=== PATIENT | female | born 1995 | race Caucasian/White ===

== ENCOUNTER 2020-11-17 15:04 | Outpatient (REF) | payer OTHER, SELFPAY ==
[2020-11-17 15:41] LABS: MANUAL DIFF FLAG NO
[2020-11-17 15:58] LABS: Basophils Absolute Auto 0.1 X10*3/uL (0.0-0.2); Basophils Percent Auto 0.6 % (0-2); Eosinophils Absolute Auto 0.3 X10*3/uL (0.0-0.4); Eosinophils Percent Auto 2.9 % (0-4); Hematocrit 39.8 % (37-47); Hemoglobin 13.3 g/dl (12.0-16.0); Imm Gran Abs Auto 0.04 X10*3/uL (0.00-0.03); Imm Gran Pct Auto 0.4 % (0.0-0.4); Lymphocytes Absolute Auto 3.6 X10*3/uL (1.2-4.9); Lymphocytes Percent Auto 36.1 % (20-40); Mean Corpuscular HGB Conc 33.4 g/dl (31.0-35.0); Mean Corpuscular Hemoglobin 29.8 pg (27.0-33.0); Mean Platelet Volume 10.7 fL (9.4-12.3); Monocytes Absolute Auto 0.5 X10*3/uL (0.1-1.2); Monocytes Percent Auto 5.2 % (2-11); Neutrophils Absolute Auto 5.5 X10*3/uL (2.0-8.3); Neutrophils Percent Auto 54.8 % (45-73); Platelet Count 245 X10*3/uL (160-400); Red Blood Count 4.47 X10*6/uL (4.20-5.50); Red Cell Distribution Width 12.2 % (11.0-16.0)
[2020-11-17 16:17] LABS: Alanine Aminotransferase 15 U/L (0-31); Albumin Level 4.4 g/dL (3.5-5.0); Alkaline Phosphatase 54 U/L (39-117); Anion Gap 11 (12-20); Aspartate Amino Transferase 13 U/L (5-31); Bilirubin Total 0.9 mg/dL (0.0-1.0); Blood Urea Nitrogen 8 mg/dL (9-16); Calcium 9.4 mg/dL (8.4-10.2); Carbon Dioxide 26 mmol/L (22-29); Chloride 103 mmol/L (96-108); Cholesterol 205 mg/dL; Estimated Glomerular Filt Rate > 60; Glucose Fasting 81 mg/dL (60-99); HDL Cholesterol 33 mg/dL; LDL Cholesterol Calculated 124 mg/dl; Potassium 4.3 mmol/L (3.3-5.1); Sodium 136 mmol/L (135-145); Total Protein 7.6 g/dL (6.5-8.0); Triglycerides 240 mg/dL
[2020-11-17 16:37] LABS: TSH reflex Free T4 0.98 uIU/mL (0.32-4.0)
== END 2020-11-17 15:05 | disposition home or self-care (01) ==
LOC: HO.LAB 15:04
PROVIDERS: PCP Family Medicine; Visit Provider Family Medicine
DX: Z00.00 Encounter for general adult medical examination without abnormal findings (principal); R11.0 Nausea; Z13.29 Encounter for screening for other suspected endocrine disorder; Z13.220 Encounter for screening for lipoid disorders
CPT/HCPCS: 36415; 80053; 80061; 84443; 85025

== ENCOUNTER 2020-11-30 11:29 | Emergency (ER) | payer OTHER, SELFPAY ==
--- NOTE | 2020-11-30 12:37 | ED_ITS ---
HPI - General Adult General Chief complaint: General Medical Stated complaint: cyst, covid symptoms Source: patient Mode of arrival: ambulatory Limitations: no limitations History of Present Illness HPI narrative: Patient presents to ED for right axillary painful cyst. Patient states history of hidradenitis suppurative a has a appointment with rate reviewer. Patient states also stating feeling fatigued and wants to be tested for COVID. Related Data Home Medications Medication Instructions Recorded Confirmed clindamycin phosphate 1 % topical ml TOPICAL BID 09/07/20 solution Previous Rx's Medication Instructions Recorded mupirocin 2 % topical ointment 1 appl TOPICAL BID 15 Days #22 g 11/01/20 ondansetron 4 mg disintegrating 4 mg PO Q8H PRN 5 Days #15 tab 11/16/20 tablet doxycycline hyclate 100 mg PO BID 7 Days #14 tab 11/30/20 ondansetron HCl [Zofran] 4 mg PO Q6H PRN #8 tab 11/30/20 Allergies Allergy/AdvReac Type Severity Reaction Status Date / Time tramadol [TRAMADOL] Allergy Severe VOMITING, Verified 11/16/20 16:41 nausea and vomiting Review of Systems Review of Systems: Yes all other systems are reviewed and are negative Constitutional: Constitutional: Reports as per HPI, Reports no additional constitutional complaints and Reports fatigue Eyes: Eyes: Reports as per HPI and Reports no additional eye complaints ENT: Reports system reviewed and no additional complaints, except as documented and Reports as per HPI Cardiovascular: Cardiovascular: Reports as per HPI and Reports no additional cardiovascular complaints Respiratory: Respiratory: Reports as per HPI and Reports no additional respiratory complaints Gastrointestinal: Gastrointestinal: Reports as per HPI and Reports no additional gastrointestinal complaints Musculoskeletal: Musculoskeletal: Reports no additional musculoskeletal complaints and Reports as per HPI Neurologic: Reports system reviewed and no additional complaints, except as documented and Reports as per HPI Psychiatric: Psychiatric: Reports no additional psychiatric complaints and Reports as per HPI Endocrine: Endocrine: Reports fatigue PMF Past Medical History Surgical History History of placement of ear tubes History of tonsillectomy and adenoidectomy History of wisdom tooth extraction Family History Family History Father Diabetes mellitus Mother No problems noted. Maternal Grandfather Lymphoma Sister No problems noted. Brother No problems noted. Sister No problems noted. Sister No problems noted. Sister No problems noted. Maternal Aunt Breast cancer Social History Social History (Updated 11/16/20 @ 16:43 by Milvia Argueta [facility]) Alcohol intake: never Smoking Status: Current every day smoker Tobacco Type: Cigarette Cigarettes Per Day: 7 Physical Exam Vital Signs: Vital Signs: Last Vital Signs Temp 98.6 F 11/30/20 13:23 Pulse 66 11/30/20 13:23 Resp 18 11/30/20 13:23 BP 117/63 11/30/20 13:23 Pulse Ox 99 11/30/20 13:23 Const: General: cooperative, healthy appearing, comfortable, no acute distress, well developed, alert, awake and Physically active Orientation/consciousness: patient oriented x3 HENMT: Head: Yes normal to inspection, Yes No palpable skull fracture present, Yes normocephalic and Yes atraumatic Eyes: General: appearance normal, both eyes and all related structures Neck: Neck: Yes normal visual inspection, Yes full ROM, Yes no lymphadenopathy, Yes no meningeal signs, Yes trachea midline, Yes supple and No tender Chest: Chest palpation & inspection: normal inspection of the chest and normal palpation of entire chest wall Resp: Effort & Inspection: normal respiratory effort and able to speak in complete sentences Cardio: Jugular venous distension: no JVD Heart sounds: S1 normal heart sound present and S2 normal heart sound present GI: Inspection: Yes normal to inspection and No abdominal wall ecchymosis Palpation (GI): Soft to palpation, not firm, nontender, no guarding and not rigid : General: No CVA tenderness and Yes no CVA tenderness Back/Spine/Pelvis: Back: no CVA tenderness, No CVA tenderness and No back tenderness Skin: General skin exam: no rashes or lesions noted and elasticity normal Neuro: General: patient oriented x3, no meningeal signs and CN's II-XI intact bilaterally Cranial nerves: Yes CN's II-XII intact bilaterally Extrem: Other: Right axilla: positive for hidradenitis suppiriva that's erythamatous and tender, but no fluctulance or pus drainage. General: Yes normal to inspection and Yes full ROM Psych: Appearance: grossly normal, well kempt and not disheveled Course Course Course Narrative: Patient has hidradenitis suppurativa. Patient will need antibiotics Reevaluation(s) Reevaluation #1: Patient's offer COVID-19 virus. COVID swab negative. Patient was Asked to give urine to make sure she is not due to her stating she is nauseous, but patient refused and states she sure she is not . Patient denies any abdominal pain, chest pain, shortness of breath. Patient likely be discharged. Medical Decision Making MDM Narrative Medical decision making narrative: Hidradenitis suppurative a Lab Data Labs: Lab Results 11/30/20 Range/Units 13:20 Coronavirus (PCR) NEGATIVE (Negative) SARS-CoV-2 (PCR) Cancelled Influenza Type A (PCR) NEGATIVE (Negative) Influenza Type B (PCR) NEGATIVE (Negative) RSV RNA Qual (PCR) NEGATIVE (Negative) Discharge Plan Discharge Clinical Impression: Hidradenitis suppurativa Patient Disposition: Home, Self-Care Instructions: Hidradenitis Suppurativa (ED) Additional Instructions: Return to the ED immediately for worsening swelling, pus discharge, fever, chills, weakness, dizziness, or any other concerning symptoms. Prescriptions: New doxycycline hyclate 100 mg tablet 100 mg PO BID 7 Days Qty: 14 RF: 0 ondansetron HCl [Zofran] 4 mg tablet 4 mg PO Q6H PRN (Reason: nausea) Qty: 8 RF: 0 No Action ondansetron 4 mg tablet,disintegrating 4 mg PO Q8H PRN (Reason: nausea and vomiting) 5 Days Qty: 15 RF: 0 clindamycin phosphate 1 % solution topical BID RF: 0 mupirocin 2 % ointment 1 appl topical BID 15 Days Qty: 22 RF: 1 Referrals: Dane Sanon MD [Physician] - 2 days (Right Hidradenitis suppurativa) Stand Alone Forms: Work/School Release Interventions: ED Discharge Assessment Last Done: 11/30/20 13:40 Discharge Date/Time: 11/30/20 13:56 Print Language: Divehi
[2020-11-30 13:23] VITALS: BP 117/63; PULSE 66; RESP 18; TEMP 37; O2SAT 99
[2020-11-30 15:22] LABS: Influenza A PCR NEGATIVE (Negative); Influenza B PCR NEGATIVE (Negative); Resp Syncy Virus RNA Qual PCR NEGATIVE (Negative); SARS COV2 PCR INHOUSE NEGATIVE (Negative)
== END 2020-11-30 13:56 | disposition home or self-care (01) ==
PROVIDERS: Physician Assistant; Emergency Provider Emergency Medicine; PCP Family Medicine
DX: L73.2 Hidradenitis suppurativa (principal); Z20.822 Contact with and (suspected) exposure to COVID-19; F17.210 Nicotine dependence, cigarettes, uncomplicated; Z71.6 Tobacco abuse counseling; Z79.899 Other long term (current) drug therapy
CPT/HCPCS: 0241U; 36415; 99282; 99283; U0003; U0005

== ENCOUNTER → 2020-12-05 08:23 | Outpatient (BNVA) | payer OTHER, SELFPAY | PROVIDERS: PCP Family Medicine; Visit Provider Surgery | DX: L73.2 Hidradenitis suppurativa (principal) | CPT/HCPCS: 99202 ==

== ENCOUNTER 2020-12-23 19:08 | Outpatient (REF) | payer OTHER, SELFPAY | END 2020-12-23 19:09 | disposition home or self-care (01) | LOC: HO.LNP 19:08 | PROVIDERS: Visit Provider Family Medicine | DX: R11.0 Nausea (principal); Z20.822 Contact with and (suspected) exposure to COVID-19 | CPT/HCPCS: U0003; U0005 ==

== ENCOUNTER 2020-12-30 09:19 | Day surgery (SDC) | payer OTHER, SELFPAY ==
[2020-12-27 10:44] VITALS: BMI 36.6
--- NOTE | 2020-12-29 09:02 | P.CONAN_ITS ---
Documented by User: Marleni Cerna 12/29/20 09:03 HPI - Anesthesia Eval Consult details Narrative: 25yo F for Right Excision of Axilla Hidradenitis PMFSH Active Problems Active Problems: All Active Problems (Updated 12/27/20 @ 10:39 by Sangita Butcher) Hidradenitis suppurativa (Acute) Laboratory examination ordered as part of a routine general medical examination (Acute) Depression with anxiety (Acute) Nicotine dependence (Acute) Abscess (Acute) Nausea (Acute) Contact with or exposure to other viral diseases (Acute) Past Medical History Medical History Anxiety and depression Asthma Genital herpes simplex Headache Family History Family History Father Diabetes mellitus Mother No problems noted. Maternal Grandfather Lymphoma Sister No problems noted. Brother No problems noted. Sister No problems noted. Sister No problems noted. Sister No problems noted. Maternal Aunt Breast cancer Surgical History Surgical History History of placement of ear tubes History of tonsillectomy and adenoidectomy History of wisdom tooth extraction Social History Social History Alcohol intake: never Smoking Status: Current every day smoker Tobacco Type: Cigarette Cigarettes Per Day: 7 Advance Directives: No Advance Directives Information Provided: No Advance Directives on File: No Recently lost weight without trying: No Meds Allergies Allergy/AdvReac Type Severity Reaction Status Date / Time tramadol [TRAMADOL] Allergy Severe VOMITING, Verified 12/27/20 10:41 nausea and vomiting Home Medications Medication Instructions Recorded Confirmed Last Taken Type clindamycin phosphate 1 % topical 1 appl TOPICAL BID 09/07/20 12/27/20 Unknown History solution Exam Exam Date and Time: December 29, 2020901 Height,Weight and Vital Signs: Height 5 ft 9 in Weight 112.491 kg Assessment and Plan Assessment Anesthesia Assessment: Chart Reviewed Documented by User: Deanne Mcmullen 12/30/20 13:48 [facility] Past Medical History Medical History Anxiety and depression Asthma Genital herpes simplex Headache Family History Family History Father Diabetes mellitus Mother No problems noted. Maternal Grandfather Lymphoma Sister No problems noted. Brother No problems noted. Sister No problems noted. Sister No problems noted. Sister No problems noted. Maternal Aunt Breast cancer Surgical History Surgical History History of placement of ear tubes History of tonsillectomy and adenoidectomy History of wisdom tooth extraction Social History Social History Alcohol intake: never Smoking Status: Current every day smoker Tobacco Type: Cigarette Cigarettes Per Day: 7 Advance Directives: No Advance Directives Information Provided: No Advance Directives on File: No Recently lost weight without trying: No Meds Allergies Allergy/AdvReac Type Severity Reaction Status Date / Time tramadol [TRAMADOL] Allergy Severe VOMITING, Verified 12/27/20 10:41 nausea and vomiting Home Medications Medication Instructions Recorded Confirmed Last Taken Type clindamycin phosphate 1 % topical 1 appl TOPICAL BID 09/07/20 12/27/20 Unknown History solution Exam Airway Mallampati Class: II TM Dist: >3cm Neck ROM: Full Assessment and Plan Assessment Anesthesia Assessment: Anesthesia Plan Discussed and Chart Reviewed Final Anesthetic Review NPO: Yes ASA Class: II Final Preanesthetic Review: No Changes in Pt Med Stat, Meds/Allgs Chart Reviewed, Consent Obtained/Reviewed and Anes Risks/Benef Reviewed Patient Risk: Low Procedure Risk: Low Assessment/Block/Sedation in SS: Assess/Block/Sedation-SS Anesthetic Plan Anesthetic Plan: GA Disposition: Standard PACU
[2020-12-30] VITALS (7 sets, daily range): BP systolic 103–116; BP diastolic 60–76; PULSE 74–83; RESP 16–18; TEMP 36.2–36.3; O2SAT 94–99
[2020-12-30 10:23] LABS: UPreg QC Valid YES; Urine Pregnancy NEGATIVE (NEGATIVE)
[2020-12-30] MEDS: Lactated Ringers 1,000 ML 100 ML IVCONT (11:11)
--- NOTE | 2020-12-30 13:44 | MHC.SHP ---
Pre-Procedural Eval Section B Chief Complaint: Left Inguinal Hernia Allergies: Allergies Allergy/AdvReac Type Severity Reaction Status Date / Time tramadol [TRAMADOL] Allergy Severe VOMITING, Verified 12/27/20 10:41 nausea and vomiting Plan I have reviewed the history and physical and performed a pertinent physical examination on my patient. No changes have occurred unless specified.
--- NOTE | 2020-12-30 14:33 | P.OP_ITS ---
Operative Note Operative Note Date of Service: 12/30/20 Narrative: Preop diagnosis: Hidradenitis suppurativa, right axilla Postop diagnosis: The same Procedure: Excision of hidradenitis suppurativa, right axilla Surgeon: Dane Sanon MD manufacturing assistant: None The patient is a 25-year-old female with an area of pain, swelling and drainage, recurrent, on the right axilla. She was seen in the office and was noted to have hidradenitis suppurative of the axilla, with an induration did area along with sinuses. In view of the her recurrent symptoms she wants to proceed with excision. She understood the technique of excision in the operating room under anesthesia and she was aware of the risks, benefits, and alternatives. She was brought to the operative placed supine on the table under general anesthesia via laryngeal mask airway. The right arm was abduct to expose the entire axilla. The right axilla was prepped and draped in the usual sterile fashion. I infiltrated the planned line of excision using lidocaine 1%. I then made the incision on the skin around this area of induration to include all the diseased appearing skin and subcutaneous tissue using a blade 15. This carried down to full-thickness skin and subcutaneous fat with electrocautery. We continued to carry down the incision with electrocautery through the subcutaneous fat and posteriorly to excise the entire indurated area. This was sent as specimen. The area of excision was measured and this was about 7 cm long by about 2.5-3 cm wide I undermined the edges to create tension-free closure using the skin and subcutaneous tissue. I reapposed the deep subcutaneous layer with Dexon 3-0 interrupted sutures. Skin closure was achieved with multiple nylon 3-0 interrupted sutures. Hemostasis had been ensured prior to closure with electrocautery. I then infiltrated the area of excision with Marcaine 0.5% for postop analgesia. Dressings were applied Procedure was then completed The patient tolerated procedure well. No complication noted. Initial fine counts of sponges and instruments were correct. Estimated blood loss was about 15 cc. The patient extubated without difficulty and transferred to the recovery room with stable vital signs.
--- NOTE | 2020-12-30 14:36 | P.BOP_ITS ---
Brief Operative Note Date of Service: 12/30/20 Pre-op diagnosis: Hidradenitis suppurativa, right axilla Post-op diagnosis: same Procedure: Excision of hidradenitis suppurative of, right axilla Surgeon: Dane Sanon MD Anesthesia: GLMA Was an [employer] Developer used for this Procedure?: No Estimated blood loss (mL): 15 Pathology: other (Hidradenitis suppurative) Condition: stable Disposition: PACU
[2020-12-30] MEDS: oxyCODONE HCl Immed Release 5 MG TABLET PO (14:39)
[2020-12-30] MEDS: Acetaminophen 325 MG TABLET 650 MG PO (14:40)
[2020-12-30] MEDS: ondansetron HCL 4 MG/2 ML VIAL IVPUSH (14:42)
== END 2020-12-30 15:35 | disposition home or self-care (01) ==
PROVIDERS: Nurse Practitioner; PCP Family Medicine; Visit Provider Surgery
PROC: (CPT 11450; principal; 2020-12-30 11:30)
DX: L73.2 Hidradenitis suppurativa (principal); J45.909 Unspecified asthma, uncomplicated; F32.9 Major depressive disorder, single episode, unspecified; Z79.899 Other long term (current) drug therapy; Z88.8 Allergy status to other drugs, medicaments and biological substances; F17.210 Nicotine dependence, cigarettes, uncomplicated
CPT/HCPCS: 11450; 81025; 88304; 88305; J0690; J1100; J1170; J2250; J2405; J3010

== ENCOUNTER → 2021-01-12 14:34 | Outpatient (BNVA) | payer OTHER, SELFPAY | PROVIDERS: PCP Family Medicine; Visit Provider Surgery | DX: Z98.890 Other specified postprocedural states (principal); L73.2 Hidradenitis suppurativa | CPT/HCPCS: 99212 ==

== ENCOUNTER → 2021-02-02 14:25 | Outpatient (BNVA) | payer OTHER, SELFPAY | PROVIDERS: PCP Family Medicine; Referring Provider Family Medicine; Visit Provider Surgery | DX: L73.2 Hidradenitis suppurativa (principal); J45.909 Unspecified asthma, uncomplicated; F41.8 Other specified anxiety disorders; F17.210 Nicotine dependence, cigarettes, uncomplicated; Z88.5 Allergy status to narcotic agent; Z79.899 Other long term (current) drug therapy | CPT/HCPCS: 99212 ==

== ENCOUNTER → 2021-02-08 14:46 | Outpatient (BNVA) | payer OTHER, SELFPAY | PROVIDERS: PCP Family Medicine; Visit Provider Surgery | DX: L73.2 Hidradenitis suppurativa (principal) | CPT/HCPCS: 99212 ==

== ENCOUNTER 2021-02-16 10:44 | Emergency (ER) | payer OTHER, SELFPAY ==
--- NOTE | ~2021-02-16 | XR_ITS ---
EXAMINATION: XR CHEST CLINICAL INFORMATION: Cough for 4 days COMPARISON: None TECHNIQUE: Frontal view of the chest was obtained. FINDINGS: No significant abnormality is noted involving the heart, lungs, mediastinum, bony thorax or soft tissues. XR/XR chest 1V IMPRESSION: Unremarkable chest exam
[2021-02-16 11:10] VITALS: BP 114/83; PULSE 88; RESP 18; TEMP 37.4; O2SAT 99; BMI 36.4
--- NOTE | 2021-02-16 11:44 | ED_ITS ---
HPI - General Adult General Chief complaint: Upper Respiratory Symptoms Stated complaint: flu like symptoms Time Seen by Provider: 02/16/21 11:24 Source: patient Mode of arrival: ambulatory Limitations: no limitations History of Present Illness HPI narrative: Patient presents to ED for coughing, sore throat, headache, and sinus pain for 5 days. Patient states she recently tested for strep ( two days ago) and it was negative. Related Data Home Medications Medication Instructions Recorded Confirmed clindamycin phosphate 1 % topical 1 appl TOPICAL BID 09/07/20 02/08/21 solution valacyclovir 500 mg tablet 500 mg PO DAILY 02/14/21 Previous Rx's Medication Instructions Recorded ibuprofen 600 mg PO Q6H PRN #30 tab 12/30/20 oxycodone-acetaminophen [Percocet] 1 - 2 tab PO Q4-6H PRN #25 tab 12/30/20 ondansetron 4 mg disintegrating 4 mg PO Q8H PRN 5 Days #15 tab 02/02/21 tablet sulfamethoxazole 800 1 tab PO Q12H 10 Days #20 tab 02/06/21 mg-trimethoprim 160 mg tablet benzonatate [Tessalon Perles] 100 mg PO TID PRN #18 cap 02/16/21 fluticasone propionate 2 spray INTRANASAL DAILY 7 Days 02/16/21 #16 g Allergies Allergy/AdvReac Type Severity Reaction Status Date / Time tramadol [TRAMADOL] Allergy Severe VOMITING, Verified 02/06/21 10:56 nausea and vomiting Review of Systems Review of Systems: Yes all other systems are reviewed and are negative Constitutional: Constitutional: Reports as per HPI, Reports no additional constitutional complaints, Reports body ache(s), Reports chills and Reports headache(s) Eyes: Eyes: Reports as per HPI and Reports no additional eye complaints ENT: Reports system reviewed and no additional complaints, except as documented, Reports as per HPI, Reports headache(s) and Reports sore throat Cardiovascular: Cardiovascular: Reports as per HPI, Reports no additional cardiovascular complaints, Denies chest pain and Denies dyspnea Respiratory: Respiratory: Reports as per HPI, Reports no additional respiratory complaints, Reports cough and Denies dyspnea Gastrointestinal: Gastrointestinal: Reports as per HPI and Reports no additional gastrointestinal complaints Genitourinary: Genitourinary: Reports no additional female genitourinary complaints and Reports as per HPI Musculoskeletal: Musculoskeletal: Reports no additional musculoskeletal complaints and Reports as per HPI Neurologic: Reports system reviewed and no additional complaints, except as documented, Reports as per HPI and Reports headache(s) Psychiatric: Psychiatric: Reports no additional psychiatric complaints and Reports as per HPI [facility] Past Medical History Medical History Anxiety and depression Asthma Genital herpes simplex Headache Surgical History History of placement of ear tubes History of tonsillectomy and adenoidectomy History of wisdom tooth extraction Family History Family History Father Diabetes mellitus Mother No problems noted. Maternal Grandfather Lymphoma Sister No problems noted. Brother No problems noted. Sister No problems noted. Sister No problems noted. Sister No problems noted. Maternal Aunt Breast cancer Social History Social History Alcohol intake: never Cigarettes Per Day: 7 Advance Directives: No Advance Directives Information Provided: No Patient : No Physical Exam Vital Signs: Vital Signs: Last Vital Signs Temp 99.4 F 02/16/21 11:10 Pulse 88 02/16/21 11:10 Resp 18 02/16/21 11:10 BP 114/83 02/16/21 11:10 Pulse Ox 99 02/16/21 11:10 Body Mass Index 36.4 Const: General: cooperative, healthy appearing, comfortable, no acute distress, well developed, alert and awake Orientation/consciousness: patient oriented x3 HENMT: Head: Yes normal to inspection, Yes No palpable skull fracture present, Yes normocephalic, Yes atraumatic and No abrasion Face and sinus: Yes sinus tenderness (Maxillary) Throat: Yes posterior oropharynx normal, Yes tonsils normal and Yes uvula midline Eyes: General: appearance normal, both eyes and all related structures Neck: Neck: Yes normal visual inspection, Yes full ROM, Yes no lymphadenopathy, Yes no meningeal signs, Yes trachea midline, Yes supple and No tender Chest: Chest palpation & inspection: normal inspection of the chest and normal palpation of entire chest wall Resp: Effort & Inspection: normal respiratory effort and able to speak in complete sentences Auscultation: clear to auscultation bilaterally Cardio: Jugular venous distension: no JVD Heart sounds: S1 normal heart sound present and S2 normal heart sound present GI: Inspection: Yes normal to inspection and No abdominal wall ecchymosis Palpation (GI): Soft to palpation, not firm, nontender, no guarding and not rigid : General: No CVA tenderness and Yes no CVA tenderness Back/Spine/Pelvis: Back: no CVA tenderness, No CVA tenderness and No back tenderness Skin: General skin exam: no rashes or lesions noted and elasticity normal Neuro: General: patient oriented x3, no meningeal signs and CN's II-XI intact bilaterally Cranial nerves: Yes CN's II-XII intact bilaterally Extrem: Other: Negative for any swelling, pitting edema, or calf tenderness. General: Yes normal to inspection and Yes full ROM Psych: Appearance: grossly normal, well kempt and not disheveled Course Course Course Narrative: Patient will have chest x-ray and COVID swab ordered. Reevaluation(s) Reevaluation #1: Patient's COVID swab negative. Patient's chest x-ray negative. Patient will be discharged with cough medication and Nasacort for sinuses tenderness. Time: 12:27 Medical Decision Making [facility] Narrative Medical decision making narrative: Viral sinusitis. URI Lab Data Labs: Lab Results 02/16/21 Range/Units 11:16 COVID-19 (NO) Negative (Negative) COVID-19 Clin Com See Note Discharge Plan Discharge Clinical Impression: Sinusitis, acute, URI (upper respiratory infection) Patient Disposition: Home, Self-Care Instructions: Sinusitis (ED), Upper Respiratory Infection (ED) Additional Instructions: Your COVID swab came back negative. Chest x-ray came back normal. Return to the ED immediately for any chest pain, coughing up blood, swelling of lower extremities, calf pain, weakness, dizziness, intractable fever, or any other concerning symptoms. Prescriptions: New benzonatate [Tessalon Perles] 100 mg capsule 100 mg PO TID PRN (Reason: cough) Qty: 18 RF: 0 fluticasone propionate 50 mcg/actuation spray,suspension 2 spray intranasal DAILY 7 Days Qty: 16 RF: 0 No Action ondansetron 4 mg tablet,disintegrating 4 mg PO Q8H PRN (Reason: nausea and vomiting) 5 Days Qty: 15 RF: 0 oxycodone-acetaminophen [Percocet] 5-325 mg tablet 1 - 2 tab PO Q4-6H PRN (Reason: pain) Qty: 25 RF: 0 ibuprofen 600 mg tablet 600 mg PO Q6H PRN (Reason: pain) Qty: 30 RF: 0 sulfamethoxazole-trimethoprim [Bactrim DS] 800-160 mg tablet 1 tab PO Q12H 10 Days Qty: 20 RF: 0 valacyclovir 500 mg tablet 500 mg PO DAILY RF: 0 clindamycin phosphate 1 % solution 1 appl topical BID RF: 0 Referrals: Toño Riddle MD [Primary Care Provider] - 2 days (Patient presents to the ED for your URI symptoms. COVID swab negative. Chest x-ray normal.) Stand Alone Forms: Work/School Release Interventions: ED Discharge Assessment Last Done: 02/16/21 12:57 Discharge Date/Time: 02/16/21 12:57 Print Language: Malay
[2021-02-16 11:46] LABS: COVID-19 Test Negative (Negative)
== END 2021-02-16 12:57 | disposition home or self-care (01) ==
PROVIDERS: Emergency Provider Emergency Medicine; PCP Family Medicine
DX: J01.90 Acute sinusitis, unspecified (principal); J45.909 Unspecified asthma, uncomplicated; Z79.899 Other long term (current) drug therapy; Z20.822 Contact with and (suspected) exposure to COVID-19
CPT/HCPCS: 36415; 71045; 87635; 99283

== ENCOUNTER 2021-02-21 14:28 | Outpatient (REF) | payer OTHER, SELFPAY ==
--- NOTE | ~2021-02-21 | XR_ITS ---
EXAMINATION: XR CHEST CLINICAL INFORMATION: Cough COMPARISON: 02/16/2021 TECHNIQUE: 2 views of the chest were obtained. FINDINGS: No significant abnormality is noted involving the heart, lungs, mediastinum, bony thorax or soft tissues. XR/XR chest 2V IMPRESSION: Unremarkable examination.
== END 2021-02-21 14:29 | disposition home or self-care (01) ==
LOC: HO.XRAY 14:28
PROVIDERS: PCP Family Medicine; Visit Provider Family Medicine
DX: R05 Cough (principal); Z20.822 Contact with and (suspected) exposure to COVID-19
CPT/HCPCS: 71046; U0003; U0005

== ENCOUNTER 2021-02-24 09:21 | Day surgery (SDC) | payer OTHER, SELFPAY ==
[2021-02-20 08:57] VITALS: BMI 35.7
[2021-02-24] VITALS (7 sets, daily range): BP systolic 121–139; BP diastolic 73–80; PULSE 69–96; RESP 16–20; TEMP 36.3–36.9; O2SAT 95–99
[2021-02-24 10:18] LABS: UPreg QC Valid YES; Urine Pregnancy NEGATIVE (NEGATIVE)
--- NOTE | 2021-02-24 10:21 | HO.ANESPROP2 ---
[facility] Active Problems Active Problems: All Active Problems (Updated 02/21/21 @ 13:46 by Toño Riddle MD) Cough (Acute) Bronchitis (Acute) Hidradenitis suppurativa (Acute) Laboratory examination ordered as part of a routine general medical examination (Acute) Depression with anxiety (Acute) Nicotine dependence (Acute) Abscess (Acute) Nausea (Acute) Contact with or exposure to other viral diseases (Acute) Abscess (Acute) Postnasal drip (Acute) Past Medical History Medical History (Updated 02/21/21 @ 13:46 by Toño Riddle MD) Anxiety and depression Asthma Genital herpes simplex Headache Right axillary hidradenitis Family History Family History Father Diabetes mellitus Mother No problems noted. Maternal Grandfather Lymphoma Sister No problems noted. Brother No problems noted. Sister No problems noted. Sister No problems noted. Sister No problems noted. Maternal Aunt Breast cancer Surgical History Surgical History (Updated 02/20/21 @ 08:53 by Sangita Butcher) History of placement of ear tubes History of tonsillectomy and adenoidectomy History of wisdom tooth extraction Hx of surgical procedure Social History Social History Alcohol intake: never Patient Tobacco Use Status: Current everyday Tobacco user Cigarettes Per Day: 7 Are you DNR?: No Advance Directives: No Advance Directives Information Provided: No Advance Directives on File: No Recently lost weight without trying: No Eating poorly because of decreased appetite: No Nutrition Risks: No Nutritional Risk Meds Allergies Allergy/AdvReac Type Severity Reaction Status Date / Time tramadol [TRAMADOL] Allergy Severe VOMITING, Verified 02/24/21 09:50 nausea and vomiting Active Medications: Current Medications Generic Name Dose Route Start Last Admin Trade Name Freq PRN Reason Stop Dose Admin Lactated Ringer's 1,000 mls @ 50 mls/hr 02/24/21 10:30 Lr IVCONT .Q20H NANO Sodium Chloride 1,000 mls @ 50 mls/hr 02/24/21 10:30 Ns IVCONT .Q20H NANO Home Medications Medication Instructions Recorded Confirmed Last Taken Type clindamycin phosphate 1 % topical 1 appl TOPICAL BID 09/07/20 02/20/21 Unknown History solution valacyclovir 500 mg tablet 500 mg PO DAILY 02/14/21 02/20/21 Unknown History Exam Exam Date and Time: February 24, 2021 1021 Height,Weight and Vital Signs: Height 5 ft 9 in Weight 109.769 kg Last Vital Signs Temp 98.5 F 02/24/21 10:04 Pulse 72 02/24/21 10:04 Resp 16 02/24/21 10:04 BP 121/77 02/24/21 10:04 Pulse Ox 97 02/24/21 10:04 Pertinent Lab Results Pertinent Lab Results: Laboratory Tests 02/24/21 10:01 Urine Test NEGATIVE Airway Mallampati Class: II TM Dist: >3cm Neck ROM: Full Heart: rrr Lungs: inspiratory wheeze Assessment and Plan Assessment Anesthesia Assessment: Anesthesia Plan Discussed and Chart Reviewed Final Anesthetic Review NPO: Yes ASA Class: III Final Preanesthetic Review: No Changes in Pt Med Stat and Consent Obtained/Reviewed Patient Risk: Intermediate Procedure Risk: Intermediate Anesthetic Plan Anesthetic Plan: GA Disposition: Standard PACU
--- NOTE | 2021-02-24 10:31 | MHC.SHP ---
Pre-Procedural Eval Section A Date of Service: 02/24/21 Section B Chief Complaint: Hidradenitis suppurativa Allergies: Allergies Allergy/AdvReac Type Severity Reaction Status Date / Time tramadol [TRAMADOL] Allergy Severe VOMITING, Verified 02/24/21 09:50 nausea and vomiting Plan I have reviewed the history and physical and performed a pertinent physical examination on my patient. No changes have occurred unless specified.
[2021-02-24] MEDS: Lactated Ringers 1,000 ML 50 ML IVCONT (10:33)
[2021-02-24] MEDS: Albuterol Sulfate (0.083%) 2.5 MG/3 ML VIAL.NEB INHALE (10:56)
--- NOTE | 2021-02-24 11:37 | P.OP_ITS ---
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 She had previously undergone excision of these areas. She had a new area of recurrent swelling, pain, and drainage on the left groin. Examination in the office showed an area of induration about 2 x 4 cm with multiple sinuses consistent with hidradenitis. She understood the technique of excision. She was aware of the risks, benefits, and alternatives She was brought the operating room and placed in supine frog-leg position under general anesthesia via laryngeal mask airway. A surgical time-out was done. The area of the hidradenitis was prepped and draped in the usual sterile fashion. I infiltrated the planned line of incision with lidocaine 1%. I then made incision using blade 15 and this was carried down through the full- thickness of the skin and subcutaneous fat with electrocautery. Excised this entire indurated area and made sure that all diseased tissue was included. The area was then irrigated. This excised defect was about 2.5 cm wide by about 5 cm long. I reapposed the subcutaneous layer with Dexon 3-0 interrupted sutures. Skin closure was achieved with Dexon 3-0 simple interrupted sutures. I infiltrated the area of excision with Marcaine 0.5% for postop analgesia. Dressings where applied and the procedure was then completed The patient tolerated the procedure well. There were no complications noted. Initial and final counts of sponges and instruments were correct. Estimated blood loss was about 5 cc. The patient was then extubated and transferred to the recovery room with stable vital signs
--- NOTE | 2021-02-24 11:41 | PM.OP ---
Brief Operative Note Date of Service: 02/24/21 Pre-op diagnosis: Hidradenitis suppurativa, left groin Post-op diagnosis: same Procedure: Excision of hidradenitis suppurativa, left groin Surgeon: Dane Sanon MD Anesthesia: GLMA Was an [employer] used for this Procedure?: No Estimated blood loss (mL): 4 Pathology: other (Hidradenitis suppurativa) Condition: stable Disposition: PACU
== END 2021-02-24 12:40 | disposition home or self-care (01) ==
PROVIDERS: Internal Medicine; PCP Family Medicine; Visit Provider Surgery
PROC: (CPT 11462; principal; 2021-02-24 11:30)
DX: L73.2 Hidradenitis suppurativa (principal); J45.909 Unspecified asthma, uncomplicated; F32.9 Major depressive disorder, single episode, unspecified; A60.00 Herpesviral infection of urogenital system, unspecified; F17.210 Nicotine dependence, cigarettes, uncomplicated; Z99.89 Dependence on other enabling machines and devices; Z88.8 Allergy status to other drugs, medicaments and biological substances
CPT/HCPCS: 11462; 81025; 88305; 94640; J0690; J1885; J2250; J3010

== ENCOUNTER → 2021-03-08 15:43 | Outpatient (BNVA) | payer OTHER, SELFPAY | PROVIDERS: PCP Family Medicine; Visit Provider Surgery | DX: L73.2 Hidradenitis suppurativa (principal); F41.8 Other specified anxiety disorders; F17.210 Nicotine dependence, cigarettes, uncomplicated | CPT/HCPCS: 99212 ==

== ENCOUNTER → 2021-03-16 15:09 | Outpatient (BNVA) | payer OTHER, SELFPAY | PROVIDERS: PCP Family Medicine; Visit Provider Surgery | DX: L73.2 Hidradenitis suppurativa (principal); F41.8 Other specified anxiety disorders; F17.210 Nicotine dependence, cigarettes, uncomplicated; Z88.6 Allergy status to analgesic agent; Z79.52 Long term (current) use of systemic steroids; Z79.899 Other long term (current) drug therapy | CPT/HCPCS: 99212 ==

== ENCOUNTER 2021-04-04 08:33 | Emergency (ER) | payer OTHER, SELFPAY ==
[2021-04-04 09:20] VITALS: BP 138/82; PULSE 79; RESP 20; TEMP 36.6; O2SAT 98; BMI 35.4
--- NOTE | 2021-04-04 10:10 | ED.SKABFB ---
HPI - Skin/Abscess/Foreign Bdy General Chief complaint: Skin/Abscess/Foreign Body Stated complaint: post surgery wound Time Seen by Provider: 04/04/21 10:07 Source: patient and old records reviewed Mode of arrival: ambulatory Limitations: no limitations History of Present Illness complaint: lesion Onset (ago): day(s) (last few days) Tetanus up to date: yes Location: generalized (L groin) Severity: mild Relieving factors: none Exacerbating factors: none Context: other (hx of hidradenitis - s/p surgery 02/24 sutures out 03/16 went back to work wound opened up) Associated symptoms: denies other symptoms Treatments prior to arrival: bandages Related Data Home Medications Medication Instructions Recorded Confirmed clindamycin phosphate 1 % topical 1 appl TOPICAL BID 09/07/20 03/16/21 solution valacyclovir 500 mg tablet 500 mg PO DAILY 02/14/21 03/16/21 Previous Rx's Medication Instructions Recorded ibuprofen 600 mg tablet 600 mg PO Q6H PRN #30 tab 12/30/20 oxycodone-acetaminophen 5 mg-325 1 - 2 tab PO Q4-6H PRN #25 tab 12/30/20 mg tablet (Percocet) ondansetron 4 mg disintegrating 4 mg PO Q8H PRN 5 Days #15 tab 02/02/21 tablet benzonatate 100 mg capsule 100 mg PO TID PRN #18 cap 02/16/21 (Tessalon Perles) fluticasone propionate 50 2 spray INTRANASAL DAILY 7 Days 02/16/21 mcg/actuation nasal #16 g spray,suspension albuterol sulfate 90 mcg/actuation 2 puff INHALATION Q4-6H PRN 30 02/21/21 aerosol inhaler (ProAir HFA) Days #8.5 g azithromycin 250 mg tablet See Rx Instructions PO .COMPLEX 5 02/21/21 (Zithromax Z-Jae) Days #6 tab prednisone 20 mg tablet 40 mg PO DAILY 5 Days #10 tab 02/21/21 oxycodone-acetaminophen 5 mg-325 1 - 2 tab PO Q4-6H PRN #30 tab 02/24/21 mg tablet (Percocet) Allergies Allergy/AdvReac Type Severity Reaction Status Date / Time tramadol [TRAMADOL] Allergy Severe VOMITING, Verified 02/24/21 09:50 nausea and vomiting Review of Systems Review of Systems: Constitutional : No Fever, No Chills ENT/Mouth : No sore throat, No Rhinorrhea Eyes: No Eye Pain, No Swelling, No Redness Cardiovascular : No Chest Pain, No SOB Respiratory : No Cough, No Sputum Gastrointestinal : No Nausea, No Vomiting, No Diarrhea, No abdominal Pain Genitourinary : No Dysuria, No Hematuria Musculoskeletal : No joint pain, No Myalgias, No Joint Swelling Skin : No Skin Lesions, positive skin rash Neuro : No Weakness, No Numbness, No Headache Psych : No Anxiety, No Depression Heme/Lymph: No Bruising, No Bleeding,No Lymphadenopathy Endocrine : No Polyuria, No Polydipsia All other systems reviewed and are negative [facility] Past Medical History Attestation statement: The following information was validated with the patient. Medical History Anxiety and depression Asthma Genital herpes simplex Headache Right axillary hidradenitis Surgical History History of placement of ear tubes History of tonsillectomy and adenoidectomy History of wisdom tooth extraction Hx of surgical procedure Family History Family History Father Diabetes mellitus Mother No problems noted. Maternal Grandfather Lymphoma Sister No problems noted. Brother No problems noted. Sister No problems noted. Sister No problems noted. Sister No problems noted. Maternal Aunt Breast cancer Social History Social History Alcohol intake: never Patient Tobacco Use Status: Current everyday Tobacco user Cigarettes Per Day: 7 Advance Directives: No Advance Directives Information Provided: No Physical Exam Vital Signs: Vital Signs: Last Vital Signs Temp 97.9 F 04/04/21 09:20 Pulse 79 04/04/21 09:20 Resp 20 04/04/21 09:20 BP 138/82 04/04/21 09:20 Pulse Ox 98 04/04/21 09:20 Body Mass Index 35.4 Appearance: Alert. Oriented X3. No acute distress. Eyes: Pupils equal, round and reactive to light. ENT: Pharynx normal. Neck: Normal inspection. Neck supple. CVS: Normal heart rate and rhythm. Pulses normal. Respiratory: No respiratory distress. Breath sounds normal. Abdomen: Soft and nontender. L groin dehisced open areas with scant yellow drainage, no ext cellulitis, no large collection of fluid noted Skin: Skin warm and dry. Normal skin color. Normal skin turgor. Extremities: No lower extremity edema. No calf ttp Neuro: Oriented X 3. No motor deficit. No sensory deficit. Course Course Course Narrative: Dr. Sanon to see the patient today 1020am patient now states she has appointment tomorrow with Dr. Sanon, just wants work note and wants to leave, will hold off abx, no fevers MDM - Skin/Abscess/Foreign Bdy MDM Narrative Medical decision making narrative: 25 yo female with L hidradenitis s/p procedure 02/24 and suture removal on 03/16 - at this time no systemic symptoms no large abscess no extending cellulitis will discuss with Dr. Sanon who was her surgeon Discharge Plan Discharge Clinical Impression: Hidradenitis suppurativa, Dehiscence of wound Patient Disposition: Home, Self-Care Instructions: Wound Dehiscence (ED), Hidradenitis Suppurativa (ED) Additional Instructions: return to ED for any worsening symptoms or concerns please follow up with Dr. Sanon tomorrow Prescriptions: No Action ondansetron 4 mg tablet,disintegrating 4 mg PO Q8H PRN (Reason: nausea and vomiting) 5 Days Qty: 15 RF: 0 benzonatate [Tessalon Perles] 100 mg capsule 100 mg PO TID PRN (Reason: cough) Qty: 18 RF: 0 fluticasone propionate 50 mcg/actuation spray,suspension 2 spray intranasal DAILY 7 Days Qty: 16 RF: 0 oxycodone-acetaminophen [Percocet] 5-325 mg tablet 1 - 2 tab PO Q4-6H PRN (Reason: pain) Qty: 25 RF: 0 ibuprofen 600 mg tablet 600 mg PO Q6H PRN (Reason: pain) Qty: 30 RF: 0 oxycodone-acetaminophen [Percocet] 5-325 mg tablet 1 - 2 tab PO Q4-6H PRN (Reason: pain) Qty: 30 RF: 0 valacyclovir 500 mg tablet 500 mg PO DAILY RF: 0 albuterol sulfate [ProAir HFA] 90 mcg/actuation HFA aerosol inhaler 2 puff inhalation Q4-6H PRN (Reason: shortness of breath or wheezing) 30 Days Qty: 8.5 RF: 0 prednisone 20 mg tablet 40 mg PO DAILY 5 Days Qty: 10 RF: 0 azithromycin [Zithromax Z-Jae] 250 mg tablet See Rx Instructions PO .COMPLEX 5 Days Qty: 6 RF: 0 clindamycin phosphate 1 % solution 1 appl topical BID RF: 0 Stand Alone Forms: Work/School Release
== END 2021-04-04 10:46 | disposition home or self-care (01) ==
PROVIDERS: Emergency Provider Emergency Medicine; PCP Family Medicine
DX: L73.2 Hidradenitis suppurativa (principal); T81.30XA Disruption of wound, unspecified, initial encounter; Y83.9 Surgical procedure, unspecified as the cause of abnormal reaction of the patient, or of later complication, without mention of misadventure at the time of the procedure; Y92.9 Unspecified place or not applicable; F17.210 Nicotine dependence, cigarettes, uncomplicated; Z71.6 Tobacco abuse counseling; Z79.899 Other long term (current) drug therapy
CPT/HCPCS: 99283

== ENCOUNTER → 2021-04-05 15:08 | Outpatient (BNVA) | payer OTHER, SELFPAY | PROVIDERS: PCP Family Medicine; Referring Provider Family Medicine; Visit Provider Surgery | DX: Z48.817 Encounter for surgical aftercare following surgery on the skin and subcutaneous tissue (principal); Z87.2 Personal history of diseases of the skin and subcutaneous tissue | CPT/HCPCS: 99212 ==

== ENCOUNTER 2021-05-11 12:44 | Emergency (ER) | payer OTHER, SELFPAY ==
[2021-05-11 13:10] VITALS: BP 145/68; PULSE 76; RESP 18; TEMP 36.4; O2SAT 98; BMI 36.1
--- NOTE | 2021-05-11 13:45 | ED.GENADULT ---
HPI - General Adult General Chief complaint: General Medical Stated complaint: BODY ACHES Time Seen by Provider: 05/11/21 13:20 Source: patient Mode of arrival: ambulatory Limitations: no limitations History of Present Illness HPI narrative: 25 y/o female with history of hiddranititis suppuritiva presents to the ER with 2-3 months of ongoing nausea, decreased appetite and body aches. She is currently on Bactrim for infected abscesses in her inguinal area. The antibiotic caused her to get a yeast infection and now she is using Monostat. She last vomited last week but has been nauseated every day for months. She was prescribed zofran which worked well initially but now does not work for her. The only way she has an appetite to eat is when she smokes marijuana. Denies history of rashes or tick bites. MD complaint: body aches and nausea Onset (ago): month(s) Severity: moderate Quality: aching Relieving factors: none Exacerbating factors: none Associated symptoms: loss of appetite, malaise and nausea/vomiting Treatments prior to arrival: none Related Data Home Medications Medication Instructions Recorded Confirmed clindamycin phosphate 1 % topical 1 appl TOPICAL BID 09/07/20 04/05/21 solution valacyclovir 500 mg tablet 500 mg PO DAILY 02/14/21 04/05/21 Previous Rx's Medication Instructions Recorded ibuprofen 600 mg tablet 600 mg PO Q6H PRN #30 tab 12/30/20 benzonatate 100 mg capsule 100 mg PO TID PRN #18 cap 02/16/21 (Tesmarco Olson) fluticasone propionate 50 2 spray INTRANASAL DAILY 7 Days 02/16/21 mcg/actuation nasal #16 g spray,suspension albuterol sulfate 90 mcg/actuation 2 puff INHALATION Q4-6H PRN 30 02/21/21 aerosol inhaler (ProAir HFA) Days #8.5 g azithromycin 250 mg tablet See Rx Instructions PO .COMPLEX 5 02/21/21 (Zithromax Z-Jae) Days #6 tab prednisone 20 mg tablet 40 mg PO DAILY 5 Days #10 tab 02/21/21 bupropion HCl 75 mg tablet 150 mg PO DAILY 30 Days #60 tab 04/25/21 propranolol 80 mg tablet 80 mg PO BID 30 Days #60 tab 04/25/21 ondansetron 4 mg disintegrating 4 mg PO Q8H PRN 5 Days #15 tab 05/04/21 tablet sulfamethoxazole 800 1 tab PO Q12H 10 Days #20 tab 05/04/21 mg-trimethoprim 160 mg tablet (Bactrim DS) metoclopramide HCl 10 mg tablet 10 mg PO Q6H PRN #10 tab 05/11/21 (Reglan) Allergies Allergy/AdvReac Type Severity Reaction Status Date / Time tramadol [TRAMADOL] Allergy Severe VOMITING, Verified 05/04/21 13:40 nausea and vomiting Review of Systems Review of Systems: Constitutional: No Fever, No Chills ENT/Mouth: No sore throat, No Rhinorrhea, No Swallowing Difficulty Cardiovascular: No Chest Pain, No SOB, No Orthopnea, No Edema Respiratory: No Cough, No Sputum, No Wheezing, No dyspnea Gastrointestinal: + Nausea, No Vomiting, No Diarrhea, No abdominal Pain Genitourinary: No Dysuria, No Urinary Frequency, No Hematuria Musculoskeletal: No joint pain, No Myalgias Skin: No Skin Lesions, No rash Neuro: No Weakness, No Numbness, No Dizziness, No Headache Heme/Lymph: No Bruising, No Lymphadenopathy PMFSH Past Medical History Medical History Anxiety and depression Asthma Genital herpes simplex Headache Right axillary hidradenitis Surgical History History of placement of ear tubes History of tonsillectomy and adenoidectomy History of wisdom tooth extraction Hx of surgical procedure Family History Family History Father Diabetes mellitus Mother No problems noted. Maternal Grandfather Lymphoma Sister No problems noted. Brother No problems noted. Sister No problems noted. Sister No problems noted. Sister No problems noted. Maternal Aunt Breast cancer Social History Social History Alcohol intake: never Patient Tobacco Use Status: Current everyday Tobacco user Cigarettes Per Day: 7 Advance Directives: Yes Advance Directives Information Provided: No Advance Directives on File: No Patient : No Physical Exam Vital Signs: Vital Signs: Last Vital Signs Temp 97.6 F 05/11/21 13:10 Pulse 76 05/11/21 13:10 Resp 18 05/11/21 13:10 BP 145/68 H 05/11/21 13:10 Pulse Ox 98 05/11/21 13:10 Body Mass Index 36.1 Appearance: Alert. Oriented X3. No acute distress. Eyes: Pupils equal, round and reactive to light. ENT: Pharynx normal. Neck: Normal inspection. Neck supple. CVS: Normal heart rate and rhythm. Pulses normal. Respiratory: No respiratory distress. Breath sounds normal. Abdomen: Soft and nontender. suprapubic area with healing abscesses, no fluctuance. +BS x4 Skin: Skin warm and dry. Normal skin color. Normal skin turgor. No rashes. Extremities: No lower extremity edema. Neuro: Oriented X 3. No motor deficit. No sensory deficit. Course Course Course Narrative: 25 y/o female presenting with months of nausea, intermittent vomiting, body aches and fatigue. Exam and VS are unremarkable. UA negative for infection and . Will check viral PCR Reevaluation(s) Reevaluation #1: COVID, flu, rsv negative. Unclear if her symptoms are exacerbated by Bactrim, yeast infection or fighting infection of her hiddraninitis. She is not having profuse vomiting. She has no abdominal tenderness. She is stable for discharge with referral to see GI and follow back up with her PCP. Will also give trial of reglan as zofran is no longer effective. Patient agrees with plan. Medical Decision Making Lab Data Labs: Lab Results 05/11/21 05/11/21 05/11/21 Range/Units 13:27 13:49 13:49 Urine Test NEGATIVE (NEGATIVE) Urine Opiates Screen Not Detected (Not Detect) Urine Fentanyl Screen Not Detected (Not Detect) Ur Barbiturates Screen Not Detected (Not Detect) Ur Phencyclidine Scrn Not Detected (Not Detect) Ur Amphetamines Screen Not Detected (Not Detect) U Benzodiazepines Scrn Not Detected (Not Detect) Urine Cocaine Screen Not Detected (Not Detect) U Marijuana (THC) Screen POSITIVE H (Not Detect) Coronavirus (PCR) NEGATIVE (Negative) Influenza Type A (PCR) NEGATIVE (Negative) Influenza Type B (PCR) NEGATIVE (Negative) RSV RNA Qual (PCR) NEGATIVE (Negative) Discharge Plan Discharge Clinical Impression: Nausea Patient Disposition: Home, Self-Care Instructions: Acute Nausea and Vomiting (ED) Additional Instructions: You were negative for COVID-19, Flu and RSV. Your test was negative. Your urine test showed no signs of infection. Your symptoms could be worsened by Bactrim, having a yeast infection or fighting the infections of your HR. Recommend following up with GI and your PCP. Stick to a bland diet while you are not feeling well. Avoid greasy, spicy and acidic foods. If you develop new or worsening symptoms call 911 or come back to the ER for further evaluation. Prescriptions: New metoclopramide HCl [Reglan] 10 mg tablet 10 mg PO Q6H PRN (Reason: nausea and vomiting) Qty: 10 RF: 0 No Action benzonatate [Tessalon Perles] 100 mg capsule 100 mg PO TID PRN (Reason: cough) Qty: 18 RF: 0 fluticasone propionate 50 mcg/actuation spray,suspension 2 spray intranasal DAILY 7 Days Qty: 16 RF: 0 ibuprofen 600 mg tablet 600 mg PO Q6H PRN (Reason: pain) Qty: 30 RF: 0 valacyclovir 500 mg tablet 500 mg PO DAILY RF: 0 albuterol sulfate [ProAir HFA] 90 mcg/actuation HFA aerosol inhaler 2 puff inhalation Q4-6H PRN (Reason: shortness of breath or wheezing) 30 Days Qty: 8.5 RF: 0 prednisone 20 mg tablet 40 mg PO DAILY 5 Days Qty: 10 RF: 0 azithromycin [Zithromax Z-Jae] 250 mg tablet See Rx Instructions PO .COMPLEX 5 Days Qty: 6 RF: 0 bupropion HCl 75 mg tablet 150 mg PO DAILY 30 Days Qty: 60 RF: 1 propranolol 80 mg tablet 80 mg PO BID 30 Days Qty: 60 RF: 1 clindamycin phosphate 1 % solution 1 appl topical BID RF: 0 ondansetron 4 mg tablet,disintegrating 4 mg PO Q8H PRN (Reason: nausea and vomiting) 5 Days Qty: 15 RF: 0 sulfamethoxazole-trimethoprim [Bactrim DS] 800-160 mg tablet 1 tab PO Q12H 10 Days Qty: 20 RF: 0 Referrals: Pop Nichols MD [Physician] - 1 week (chronic nausea, intermittent vomiting) Stand Alone Forms: Work/School Release
[2021-05-11 14:01] LABS: UPreg QC Valid YES; Urine Pregnancy NEGATIVE (NEGATIVE)
[2021-05-11 14:11] LABS: Amphetamine Screen Urine Not Detected (Not Detect); Barbiturates, Urine Not Detected (Not Detect); Benzodiazepines Screen Urine Not Detected (Not Detect); Cannabinoid Screen Urine POSITIVE (Not Detect); Cocaine Screen Urine Not Detected (Not Detect); Fentanyl, urine Not Detected (Not Detect); Opiate Screen Urine Not Detected (Not Detect); Phencyclidine Screen Urine Not Detected (Not Detect)
[2021-05-11 14:13] LABS: Influenza A PCR NEGATIVE (Negative); Influenza B PCR NEGATIVE (Negative); Resp Syncy Virus RNA Qual PCR NEGATIVE (Negative); SARS COV2 PCR INHOUSE NEGATIVE (Negative)
== END 2021-05-11 15:12 | disposition home or self-care (01) ==
PROVIDERS: Physician Assistant; Emergency Provider Emergency Medicine; PCP Family Medicine
DX: R11.0 Nausea (principal); Z20.822 Contact with and (suspected) exposure to COVID-19; F17.210 Nicotine dependence, cigarettes, uncomplicated; F12.90 Cannabis use, unspecified, uncomplicated
CPT/HCPCS: 0241U; 36415; 80307; 81025; 99283

== ENCOUNTER 2021-06-07 10:21 | Outpatient (REF) | payer OTHER, SELFPAY ==
[2021-06-07 15:29] LABS: Appearance Urine HAZY; Color Urine YELLOW; Glucose Urine UA NEG (NEG); Leukocyte Esterase Urine 1+ (NEG); Nitrite Urine NEG (NEG); UACC Culture Trigger YES; Urine Blood NEG (NEG); Urine Ketones NEG (NEG); Urine Protein NEG (NEG-TRACE)
[2021-06-07 15:37] LABS: Bacteria Urine 2+ /LPF; Mucus Urine 2+ /LPF; Squamous Epithelial Cell Urine 3+ /LPF
[2021-06-07 15:38] LABS: RBC Urine 0 /HPF (0)
== END 2021-06-07 10:22 | disposition home or self-care (01) ==
LOC: HO.LAB 10:21
PROVIDERS: PCP Family Medicine; Visit Provider Surgery
DX: L73.2 Hidradenitis suppurativa (principal)
CPT/HCPCS: 81001; 87086; 99212

== ENCOUNTER 2021-06-27 10:26 | Day surgery (SDC) | payer OTHER, SELFPAY ==
[2021-06-21 10:08] VITALS: BMI 36.9
--- NOTE | 2021-06-26 10:28 | HO.ANESPROP2 ---
Documented by User: Marleni Cerna NP 06/26/21 10:29 HPI - Anesthesia Eval Consult details Narrative: 26yo F for ?Excision of Pubic Hidradenitis Suppurativa s/p same 01/2021 with GA-LMA 4 PMFSH Active Problems Active Problems: All Active Problems (Updated 05/11/21 @ 14:45 by ARIEL Sparks) Hidradenitis suppurativa (Acute) Laboratory examination ordered as part of a routine general medical examination (Acute) Depression with anxiety (Acute) Nicotine dependence (Acute) Abscess (Acute) Nausea (Acute) Contact with or exposure to other viral diseases (Acute) Abscess (Acute) Postnasal drip (Acute) Bronchitis (Acute) Cough (Acute) Migraine (Acute) Nausea (Acute) Cigarette smoker motivated to quit (Acute) Dizziness (Acute) Past Medical History Medical History Anxiety and depression Asthma Genital herpes simplex Headache Right axillary hidradenitis Family History Family History Father Diabetes mellitus Mother No problems noted. Maternal Grandfather Lymphoma Sister No problems noted. Brother No problems noted. Sister No problems noted. Sister No problems noted. Sister No problems noted. Maternal Aunt Breast cancer Surgical History Surgical History (Updated 06/21/21 @ 09:50 by Sangita Butcher RN) History of placement of ear tubes History of tonsillectomy and adenoidectomy History of wisdom tooth extraction Hx of surgical procedure Hx of surgical procedure Social History Social History Housing: Apartment Alcohol intake: never Patient Tobacco Use Status: Current everyday Tobacco user Tobacco use type: Cigarette Cigarettes Per Day: 7 e-Cigarette/Vaping Use: Never Used Use of substances other than those prescribed or required for medical reasons: Yes Are you DNR?: No Advance Directives: No Advance Directives Information Provided: No Advance Directives on File: No Recently lost weight without trying: No service: No Current occupational status: employed 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 Meds Allergies Allergy/AdvReac Type Severity Reaction Status Date / Time tramadol [TRAMADOL] Allergy Severe VOMITING, Verified 06/13/21 08:53 nausea and vomiting Home Medications Medication Instructions Recorded Confirmed Last Taken Type clindamycin phosphate 1 % topical 1 appl TOPICAL BID 09/07/20 06/21/21 Unknown History solution valacyclovir 500 mg tablet 500 mg PO DAILY 02/14/21 06/21/21 Unknown History Exam Exam Date and Time: June 26, 2021 1028 Height,Weight and Vital Signs: Height 5 ft 9 in Weight 113.398 kg Assessment and Plan Assessment Anesthesia Assessment: Chart Reviewed Documented by User: Arnold Johnson MD 06/27/21 12:55 [facility] Past Medical History Medical History Anxiety and depression Asthma Genital herpes simplex Headache Right axillary hidradenitis Patient : No Family History Family History Father Diabetes mellitus Mother No problems noted. Maternal Grandfather Lymphoma Sister No problems noted. Brother No problems noted. Sister No problems noted. Sister No problems noted. Sister No problems noted. Maternal Aunt Breast cancer Family history of problems with anesthesia: No Surgical History Surgical History (Updated 06/21/21 @ 09:50 by Sangita Butcher RN) History of placement of ear tubes History of tonsillectomy and adenoidectomy History of wisdom tooth extraction Hx of surgical procedure Hx of surgical procedure History of Problems with Anesthesia: No Social History Social History Housing: Apartment Alcohol intake: never Patient Tobacco Use Status: Current everyday Tobacco user Tobacco use type: Cigarette Cigarettes Per Day: 7 e-Cigarette/Vaping Use: Never Used Use of substances other than those prescribed or required for medical reasons: Yes Are you DNR?: No Advance Directives: No Advance Directives Information Provided: No Advance Directives on File: No Recently lost weight without trying: No service: No Current occupational status: employed 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 Meds Allergies Allergy/AdvReac Type Severity Reaction Status Date / Time tramadol [TRAMADOL] Allergy Severe VOMITING, Verified 06/13/21 08:53 nausea and vomiting Home Medications Medication Instructions Recorded Confirmed Last Taken Type clindamycin phosphate 1 % topical 1 appl TOPICAL BID 09/07/20 06/21/21 Unknown History solution valacyclovir 500 mg tablet 500 mg PO DAILY 02/14/21 06/21/21 Unknown History Exam Airway Mallampati Class: I TM Dist: >3cm Neck ROM: Full Loose/Missing/Broken Teeth: No Heart: ok Lungs: ok Assessment and Plan Final Anesthetic Review Family History of Problems with Anesthesia: No History of Problems with Anesthesia: No NPO: Yes ASA Class: II Final Preanesthetic Review: No Changes in Pt Med Stat, Meds/Allgs Chart Reviewed, Consent Obtained/Reviewed and Anes Risks/Benef Reviewed Patient Risk: Low Procedure Risk: Low Anesthetic Plan Anesthetic Plan: GA and Agree w/ Assess. and Plan Disposition: Standard PACU
[2021-06-27] VITALS (7 sets, daily range): BP systolic 124–137; BP diastolic 76–95; PULSE 70–98; RESP 16–18; TEMP 36.1–36.6; O2SAT 98–100; BMI 36.9
[2021-06-27 11:41] LABS: UPreg QC Valid YES; Urine Pregnancy NEGATIVE (NEGATIVE)
[2021-06-27] MEDS: Lactated Ringers 1,000 ML 100 ML IVCONT (11:45)
--- NOTE | 2021-06-27 12:41 | MHC.SHP ---
Pre-Procedural Eval Section A Date of Service: 06/27/21 Section B Chief Complaint: Hidradenitis suppurativa Allergies: Allergies Allergy/AdvReac Type Severity Reaction Status Date / Time tramadol [TRAMADOL] Allergy Severe VOMITING, Verified 06/13/21 08:53 nausea and vomiting Plan I have reviewed the history and physical and performed a pertinent physical examination on my patient. No changes have occurred unless specified.
--- NOTE | 2021-06-27 13:24 | P.OP_ITS ---
Operative Note Operative Note Date of Service: 06/27/21 Narrative: Preop diagnosis: Hidradenitis suppurativa, pubic area Postop diagnosis: The same Procedure: Excision of hidradenitis suppurativa, pubic area Surgeon: Dane Sanon MD 1st addictions counselor assistant: ARIEL Garcia Patient is a 26 year female was 2 areas of induration on the pubic area, with recurrent swelling and drainage. This was consistent with hidradenitis suppurativa. She does have a history of hidradenitis on her left axilla and left groin. In view of this recurrent problem, she wanted to proceed with excision. She understood the technique of excision under anesthesia and was aware of the risks, benefits, and alternatives. She was brought to the operating room placed supine the table under general anesthesia via laryngeal mask airway. The pubic area was prepped draped usual sterile fashion. A surgical time-out was done. The patient received cefazolin 2 g IV preoperatively I infiltrated the planned line of incision with lidocaine 1%. I made an elliptical incision on the skin to include 2 areas of induration which were almost adjacent to each other. I deepened the incision using electrocautery through the subcutaneous layer. I c ontinued with this form dissection to excise all the indurated areas. I proceeded to dissect posteriorly until the entire area of induration was excised. This was sent as specimen. The area of excision was about 8.3 cm long by about 4 cm wide I irrigated the area of excision. I reapposed the subcutaneous layer with Dexon 3-0 interrupted sutures. Skin closure achieved with multiple nylon 3-0 full- thickness sutures. Dressings were applied. The procedure was then completed The patient tolerated procedure well. No complication noted. Initial and final counts of sponges and instruments were correct. Estimated blood loss was about 20 cc. The patient was extubated without difficulty and transferred to the recovery room with stable vital signs.
== END 2021-06-27 15:09 | disposition home or self-care (01) ==
PROVIDERS: Nurse Practitioner; PCP Family Medicine; Visit Provider Surgery
PROC: (CPT 11470; principal; 2021-06-27 12:30)
DX: L73.2 Hidradenitis suppurativa (principal); A60.00 Herpesviral infection of urogenital system, unspecified; J45.909 Unspecified asthma, uncomplicated; F32.9 Major depressive disorder, single episode, unspecified; F17.210 Nicotine dependence, cigarettes, uncomplicated
CPT/HCPCS: 11470; 81025; 88304; 88305; J0690; J1100; J1885; J2250; J2405; J3010

== ENCOUNTER → 2021-07-10 13:09 | Outpatient (BNVA) | payer OTHER, SELFPAY | PROVIDERS: PCP Family Medicine; Referring Provider Family Medicine; Visit Provider Surgery | DX: Z48.817 Encounter for surgical aftercare following surgery on the skin and subcutaneous tissue (principal); L73.2 Hidradenitis suppurativa | CPT/HCPCS: 99212 ==

== ENCOUNTER → 2021-07-17 15:39 | Outpatient (BNVA) | payer OTHER, SELFPAY | PROVIDERS: PCP Family Medicine; Referring Provider Family Medicine; Visit Provider Surgery | DX: Z48.817 Encounter for surgical aftercare following surgery on the skin and subcutaneous tissue (principal); L73.2 Hidradenitis suppurativa | CPT/HCPCS: 99212 ==

== ENCOUNTER 2021-09-04 12:19 | Outpatient (REF) | payer OTHER, SELFPAY | END 2021-09-04 12:20 | disposition home or self-care (01) | LOC: HO.WFDLDS 12:19 | PROVIDERS: Visit Provider Internal Medicine | DX: Z20.822 Contact with and (suspected) exposure to COVID-19 (principal) | CPT/HCPCS: C9803; U0003; U0005 ==

== ENCOUNTER 2021-09-18 10:27 | Outpatient (REF) | payer OTHER, SELFPAY ==
[2021-09-18 11:23] LABS: COVID-19 Test Negative (Negative)
== END 2021-09-18 10:28 | disposition home or self-care (01) ==
LOC: HO.LAB 10:27
PROVIDERS: Visit Provider Internal Medicine
DX: Z20.822 Contact with and (suspected) exposure to COVID-19 (principal)
CPT/HCPCS: 87635; C9803

== ENCOUNTER → 2021-10-03 15:06 | Outpatient (BNVA) | payer OTHER, SELFPAY | PROVIDERS: PCP Family Medicine; Referring Provider Family Medicine; Visit Provider Surgery | DX: L73.2 Hidradenitis suppurativa (principal) | CPT/HCPCS: 99212 ==

== ENCOUNTER 2022-02-15 09:26 | Emergency (ER) | payer OTHER, SELFPAY ==
--- NOTE | ~2022-02-15 | CT_ITS ---
EXAMINATION: CT ABDOMEN AND PELVIS WITHOUT CONTRAST CLINICAL INFORMATION: Right lower quadrant pain. COMPARISON: 03/17/2017 CT scan of the abdomen and pelvis. TECHNIQUE: Multidetector volumetric imaging was performed from the superior aspect of the liver through the pubic symphysis. Sagittal and coronal reformatted images were obtained on the technologist's workstation. Lack of intravenous contrast limits visceral evaluation This CT examination was performed using dose optimization techniques as appropriate, variously including the following: *Automated exposure control *Adjustment of mA and/or kV according to patient size (this includes techniques or standardized protocols for targeted exams where dose is matched to indication/reason for exam; i.e. extremities or head) *Use of iterative reconstruction technique DLP: 970 mGy-cm FINDINGS: LUNG BASES: The visualized lung bases are unremarkable. LIVER, GALLBLADDER, AND BILIARY TREE: No hepatic abnormality. The gallbladder is unremarkable. Partial minimal air within the common bile duct without significant dilatation. PANCREAS: A subtle infiltrative changes surround the pancreatic head. There Partial punctate foci of air in the region of the pancreatic duct at the level the pancreatic head. The pancreatic duct is not dilated. SPLEEN: Unremarkable. ADRENAL GLANDS: Unremarkable. KIDNEYS AND URETERS: The kidneys are normal in size, shape, and attenuation. No hydronephrosis, hydroureter, or calculi seen. No perinephric stranding. BLADDER: Unremarkable. GASTROINTESTINAL TRACT: The stomach, small bowel and appendix are unremarkable. The colon and rectum are unremarkable. ABDOMINAL WALL: No significant hernia is appreciated. LYMPH NODES: No lymphadenopathy. VASCULAR: Unremarkable. PELVIC VISCERA: Unremarkable. OSSEOUS STRUCTURES: Unremarkable. CT/CT abdomen pelvis wo con IMPRESSION: 1. Possible subtle infiltrative changes surrounding the pancreatic head with questionable air within the pancreatic duct and common bile duct without significant dilatation. No definitive calculus is identified. Contrast-enhanced MRI of the abdomen with MRCP is recommended. Right upper quadrant ultrasound may be of value as well. Fleischner guidelines were followed.
[2022-02-15 09:30] VITALS: BP 141/78; PULSE 90; RESP 16; TEMP 36.6; O2SAT 99; BMI 36.9
[2022-02-15 09:55] LABS: Appearance Urine CLEAR; Color Urine STRAW; Glucose Urine UA NEG (NEG); Leukocyte Esterase Urine NEG (NEG); Nitrite Urine NEG (NEG); Urine Blood NEG (NEG); Urine Ketones NEG (NEG); Urine Protein NEG (NEG-TRACE)
[2022-02-15 09:57] LABS: UPreg QC Valid YES; Urine Pregnancy NEGATIVE (NEGATIVE)
[2022-02-15 10:46] VITALS: BP 127/76; PULSE 82; RESP 19; TEMP 36.9; O2SAT 98
--- NOTE | 2022-02-15 11:34 | ED.ABDPAIN ---
HPI - Abdominal Pain General Chief Complaint: Abdominal Pain Stated Complaint: lower abd pain nausea Time Seen by Provider: 02/15/22 11:26 Source: patient Mode of arrival: ambulatory History of Present Illness HPI narrative: 26-year-old female without significant past medical history presents with complaints of right lower quadrant pain started on Saturday is been associated with some nausea and some mild diarrhea (nothing different from baseline) and denies any urinary pain/burning/frequency but states that she is not had any fever chills. She states that she is 3 days late for her. . Related Data Home Medications Medication Instructions Recorded Confirmed adalimumab 40 mg/0.4 mL 40 mg subcut QWEEK 10/03/21 10/03/21 subcutaneous pen kit (Humira(CF) Pen) Previous Rx's Medication Instructions Recorded fluticasone propionate 50 2 spray intranasal DAILY 1 week 02/16/21 mcg/actuation nasal #16 grams spray,suspension albuterol sulfate 90 mcg/actuation 2 puff inhalation Q4-6H PRN 02/21/21 aerosol inhaler (ProAir HFA) shortness of breath or wheezing 30 days #8.5 grams bupropion HCl 75 mg tablet 150 mg PO DAILY 30 days #60 tabs 04/25/21 topiramate 50 mg tablet 50 mg PO DAILY 30 days #30 tabs 05/29/21 ibuprofen 600 mg tablet 600 mg PO Q6H PRN pain #30 tabs 10/26/21 Allergies Allergy/AdvReac Type Severity Reaction Status Date / Time tramadol [TRAMADOL] Allergy Severe VOMITING, Verified 10/26/21 16:11 nausea and vomiting Review of Systems Review of Systems Pertinent positives and negatives as stated in HPI 10 point review of systems is otherwise negative. [facility] Past Medical History Source: nursing notes reviewed Medical History Anxiety and depression Asthma Genital herpes simplex Headache Right axillary hidradenitis Surgical History History of placement of ear tubes History of tonsillectomy and adenoidectomy History of wisdom tooth extraction Hx of surgical procedure Hx of surgical procedure Family History Family History Father Diabetes mellitus Mother No problems noted. Maternal Grandfather Lymphoma Sister No problems noted. Brother No problems noted. Sister No problems noted. Sister No problems noted. Sister No problems noted. 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 GENERAL: Well developed, well nourished, in no acute distress. HEAD: Normocephalic/atraumatic EYES: PERRLA, EOMI EARS: Ext canals without abnormality OROPHARYNX: no oral lesions noted, posterior pharynx clear LUNGS: Normal breath sounds. No adventitious sounds or accessory muscle use. SpO2<99> CARDIOVASCULAR: Regular rate and rhythm without noted murmurs ABDOMEN: Soft, mild right lower quadrant pain without rebound, non-distended with bowel sounds. MUSCULOSKELETAL: No tenderness, deformities, or effusions noted on gross inspection. EXTREMITIES: No cyanosis, clubbing or edema. SKIN: Inspection of the skin reveals no rashes NEUROLOGIC: Alert and oriented x 4. Strength and sensation to light touch were grossly intact x 4. Course Course Course Narrative: 26-year-old female with history and clinical presentation suggestive of possible renal colic, appendicitis, UTI, ectopic. Review of all investigations otherwise negative for acute findings, patient is feeling somewhat better and was discharged to follow-up with her primary care provider. MDM - Abdominal Pain Lab Data Result diagrams: 02/15/22 11:43 02/15/22 11:43 Labs: Lab Results 02/15/22 02/15/22 02/15/22 Range/Units 09:48 09:48 11:43 WBC 10.4 (4.8-10.8) X10*3/uL RBC 4.89 (4.20-5.50) X10*6/uL Hgb 14.4 (12.0-16.0) g/dl Hct 43.8 (37.0-47.0) % MCV 89.6 (80.0-98.0) fL MCH 29.4 (27.0-33.0) pg MCHC 32.9 (31.0-35.0) g/dl RDW 12.2 (11.0-16.0) % Plt Count 183 (160-400) X10*3/uL MPV 11.0 (9.4-12.3) fL Immature Gran % (Auto) 0.5 H (0.0-0.4) % Neut % (Auto) 49.5 (45-73) % Lymph % (Auto) 40.9 H (20-40) % Faulk % (Auto) 4.9 (2-11) % Eos % (Auto) 3.4 (0-4) % Baso % (Auto) 0.8 (0-2) % Lymph # (Auto) 4.2 (1.2-4.9) X10*3/uL Faulk # (Auto) 0.5 (0.1-1.2) X10*3/uL Eos # (Auto) 0.4 (0.0-0.4) X10*3/uL Baso # (Auto) 0.1 (0.0-0.2) X10*3/uL Abs Immat Gran (auto) 0.05 H (0.00-0.03) X10*3/uL Absolute Neuts (auto) 5.1 (2.0-8.3) x10*3/uL Absolute Nucleated RBC 0.000 (0.0-0.012) X10*3/uL Nucleated RBC % (auto) 0.0 (0.0-0.2) /100WBC Sodium (135-145) mmol/L Potassium (3.3-5.1) mmol/L Chloride (96-108) mmol/L Carbon Dioxide (22-29) mmol/L Anion Gap (12-20) BUN (9-16) mg/dL Creatinine (0.5-1.4) mg/dL Estim Creat Clear Calc Estimated GFR Random Glucose (60-115) mg/dL Calcium (8.4-10.2) mg/dL Total Bilirubin (0.0-1.0) mg/dL AST (5-31) U/L ALT (0-31) U/L Alkaline Phosphatase (39-117) U/L Total Protein (6.5-8.0) g/dL Albumin (3.5-5.0) g/dL Lipase (8-78) U/L Urine Color STRAW Urine Appearance CLEAR Urine pH 6.0 (5.0-8.0) Ur Specific [place] 1.010 (1.005-1.025) Urine Protein NEG (NEG-TRACE) MG/DL Urine Glucose (UA) NEG (NEG) MG/DL Urine Ketones NEG (NEG) MG/DL Urine Blood NEG (NEG) Urine Nitrite NEG (NEG) Ur Leukocyte Esterase NEG (NEG) Urine Test NEGATIVE (NEGATIVE) 02/15/22 Range/Units 11:43 WBC (4.8-10.8) X10*3/uL RBC (4.20-5.50) X10*6/uL Hgb (12.0-16.0) g/dl Hct (37.0-47.0) % MCV (80.0-98.0) fL MCH (27.0-33.0) pg MCHC (31.0-35.0) g/dl RDW (11.0-16.0) % Plt Count (160-400) X10*3/uL MPV (9.4-12.3) fL Immature Gran % (Auto) (0.0-0.4) % Neut % (Auto) (45-73) % Lymph % (Auto) (20-40) % Faulk % (Auto) (2-11) % Eos % (Auto) (0-4) % Baso % (Auto) (0-2) % Lymph # (Auto) (1.2-4.9) X10*3/uL Faulk # (Auto) (0.1-1.2) X10*3/uL Eos # (Auto) (0.0-0.4) X10*3/uL Baso # (Auto) (0.0-0.2) X10*3/uL Abs Immat Gran (auto) (0.00-0.03) X10*3/uL Absolute Neuts (auto) (2.0-8.3) x10*3/uL Absolute Nucleated RBC (0.0-0.012) X10*3/uL Nucleated RBC % (auto) (0.0-0.2) /100WBC Sodium 137 (135-145) mmol/L Potassium 4.5 (3.3-5.1) mmol/L Chloride 107 (96-108) mmol/L Carbon Dioxide 22 (22-29) mmol/L Anion Gap 13 (12-20) BUN 6 L (9-16) mg/dL Creatinine 0.70 (0.5-1.4) mg/dL Estim Creat Clear Calc 163.5 Estimated GFR > 60 Random Glucose 89 (60-115) mg/dL Calcium 9.2 (8.4-10.2) mg/dL Total Bilirubin 0.4 (0.0-1.0) mg/dL AST 18 (5-31) U/L ALT 24 (0-31) U/L Alkaline Phosphatase 53 (39-117) U/L Total Protein 7.7 (6.5-8.0) g/dL Albumin 4.4 (3.5-5.0) g/dL Lipase 15 (8-78) U/L Urine Color Urine Appearance Urine pH (5.0-8.0) Ur Specific [place] (1.005-1.025) Urine Protein (NEG-TRACE) MG/DL Urine Glucose (UA) (NEG) MG/DL Urine Ketones (NEG) MG/DL Urine Blood (NEG) Urine Nitrite (NEG) Ur Leukocyte Esterase (NEG) Urine Test (NEGATIVE) Discharge Plan Discharge Clinical Impression: Abdominal pain Patient Disposition: Home, Self-Care Instructions: Abdominal Pain (ED) Additional Instructions: 1. Resume all home medications as prescribed. 2. Follow-up with your primary care provider as well as your OBGYN for further evaluation. Return to the ER for worsening symptoms. Prescriptions: No Action fluticasone propionate 50 mcg/actuation spray,suspension 2 spray intranasal DAILY 7 Days Qty: 16 0RF Rx Instructions: administer into each nostril albuterol sulfate [ProAir HFA] 90 mcg/actuation HFA aerosol inhaler 2 puff inhalation Q4-6H PRN (Reason: shortness of breath or wheezing) 30 Days Qty: 8.5 0RF bupropion HCl 75 mg tablet 150 mg PO DAILY 30 Days Qty: 60 1RF topiramate 50 mg tablet 50 mg PO DAILY 30 Days Qty: 30 1RF ibuprofen 600 mg tablet 600 mg PO Q6H PRN (Reason: pain) Qty: 30 2RF Humira(CF) Pen 40 mg/0.4 mL pen injector kit 40 mg subcut QWEEK Referrals: Toño Riddle MD [Primary Care Provider] -
[2022-02-15 11:44] VITALS: BP 114/70; PULSE 72; RESP 18; TEMP 36.9; O2SAT 98
[2022-02-15 11:48] LABS: MANUAL DIFF FLAG NO
[2022-02-15 11:50] LABS: Basophils Absolute Auto 0.1 X10*3/uL (0.0-0.2); Basophils Percent Auto 0.8 % (0-2); Eosinophils Absolute Auto 0.4 X10*3/uL (0.0-0.4); Eosinophils Percent Auto 3.4 % (0-4); Hematocrit 43.8 % (37.0-47.0); Hemoglobin 14.4 g/dl (12.0-16.0); Imm Gran Abs Auto 0.05 X10*3/uL (0.00-0.03); Imm Gran Pct Auto 0.5 % (0.0-0.4); Lymphocytes Absolute Auto 4.2 X10*3/uL (1.2-4.9); Lymphocytes Percent Auto 40.9 % (20-40); Mean Corpuscular HGB Conc 32.9 g/dl (31.0-35.0); Mean Corpuscular Hemoglobin 29.4 pg (27.0-33.0); Mean Corpuscular Volume 89.6 fL (80.0-98.0); Monocytes Absolute Auto 0.5 X10*3/uL (0.1-1.2); Monocytes Percent Auto 4.9 % (2-11); Neutrophils Absolute Auto 5.1 x10*3/uL (2.0-8.3); Neutrophils Percent Auto 49.5 % (45-73); Platelet Count 183 X10*3/uL (160-400); Red Blood Count 4.89 X10*6/uL (4.20-5.50); Red Cell Distribution Width 12.2 % (11.0-16.0); White Blood Count 10.4 X10*3/uL (4.8-10.8)
[2022-02-15 12:13] LABS: Alanine Aminotransferase 24 U/L (0-31); Albumin Level 4.4 g/dL (3.5-5.0); Alkaline Phosphatase 53 U/L (39-117); Anion Gap 13 (12-20); Aspartate Amino Transferase 18 U/L (5-31); Bilirubin Total 0.4 mg/dL (0.0-1.0); Blood Urea Nitrogen 6 mg/dL (9-16); Calcium 9.2 mg/dL (8.4-10.2); Carbon Dioxide 22 mmol/L (22-29); Chloride 107 mmol/L (96-108); Creatinine Clr Calc Pharmacy 163.5; Estimated Glomerular Filt Rate > 60; Glucose Random 89 mg/dL (60-115); Potassium 4.5 mmol/L (3.3-5.1); Sodium 137 mmol/L (135-145); Total Protein 7.7 g/dL (6.5-8.0)
[2022-02-15 14:15] VITALS: BP 117/59; PULSE 75; RESP 16; O2SAT 98
[2022-02-15 15:36] LABS: Lipase 15 U/L (8-78)
== END 2022-02-15 16:15 | disposition home or self-care (01) ==
PROVIDERS: Emergency Provider Student in an Organized Health Care Education/Training Program; PCP Family Medicine
DX: R10.30 Lower abdominal pain, unspecified (principal); F17.200 Nicotine dependence, unspecified, uncomplicated
CPT/HCPCS: 36415; 74176; 80053; 81003; 81025; 83690; 85025; 99283; 99284

== ENCOUNTER 2023-06-26 09:18 | Outpatient (REF) | payer OTHER, SELFPAY ==
[2023-06-26 17:09] LABS: CT PCR NOT DETECTED (Not Detect.); NG PCR NOT DETECTED (Not Detect.)
[2023-06-27 13:38] LABS: BV Int Neg Control Negative (Negative); BV Int Pos Control Positive (Positive)
== END 2023-06-26 09:19 | disposition home or self-care (01) ==
LOC: HO.LNP 09:18
PROVIDERS: PCP Family Medicine; Visit Provider Advanced Practice Midwife
DX: Z01.419 Encounter for gynecological examination (general) (routine) without abnormal findings (principal); L73.2 Hidradenitis suppurativa
CPT/HCPCS: 0353U; 87480; 87510; 87660; 88142; 99385

== ENCOUNTER 2023-06-26 09:18 | Outpatient (AMB) | payer OTHER, SELFPAY ==
--- NOTE | 2023-06-26 09:24 | A.OFFVIS_ITS ---
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 LMP 06/06/23 Pet Caregiver Required: No Information Interpreted: non-clinical & clinical Drainman: Drainman Present (Margy CHSAE) Accompanied by: Self / Same As Patient Allergies tramadol [TRAMADOL] Allergy (Severe, Verified 06/26/23 09:27) VOMITING, nausea and vomiting Medication List - Last Reconciled 06/26/23 by Diane Harper CNM adalimumab (Humira(CF) Pen) 40 mg subcut QWEEK albuterol sulfate 90 mcg/actuation (ProAir HFA) 2 puffs inhalation Q4-6H PRN 30 days fluticasone propionate 50 mcg/actuation 2 sprays intranasal DAILY 1 week ibuprofen 600 mg PO Q6H PRN metformin 500 mg PO BID HPI [employer] ME[employer]IC annual exam HPI Details Patient is here for home care consultant annual exam her last 1 was in 2018. She used to have a Mirena and was on various methods of control in the past she took the Mirena now after 3 years because she was getting lots of stomach pains. Her periods have gotten a little bit heavier over the last few years and they are more crampy she does not like taking medicine though she is on metformin and Humira per her home sales consultant she is on both of them she says for managing her hidradenitis super diva which she says is been majorly improved by taking the Humira she did miss 3 months because of family emergencies and she just restarted it Saturday so she does have some active lesions right now she is currently is in condoms for control none if she gets she gets and she and her boyfriend are monogamous. She not really worried about any STIs though accepts testing with the pelvic exam and Pap. She does not think she has had fasting blood work in a while and she is not exactly sure why she is on metformin and did not think she had pre diabetes or anything and says she does not have PCOS she gets regular periods. She says she does have a family history of diabetes and she does self-breast exam. She likes walking for exercise [facility] Medical History Right axillary hidradenitis Genital herpes simplex Headache Asthma Anxiety and depression Surgical History Hx of surgical procedure Hx of surgical procedure History of placement of ear tubes History of wisdom tooth extraction History of tonsillectomy and adenoidectomy Family History Father Diabetes mellitus Mother No problems noted. Maternal Grandfather Lymphoma Sister No problems noted. Brother No problems noted. Sister No problems noted. Sister No problems noted. Sister No problems noted. 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 Sexually active: Yes Sexual orientation: Straight/Heterosexual Gender identity: Female Female Reproductive History Menstrual control method: condoms Total pregnancies: 0 Date of last pap smear: 01/06/18 Physical Exam Vital Signs: Last Vital Signs BP 116/72 06/26/23 09:26 BMI result Body Mass Index 34.8 Const General: healthy appearing, comfortable, no acute distress, well developed and alert Nutritional Appearance: average body habitus Orientation/consciousness: patient oriented x3 Limitations: no limitations HEENT Head: Yes normocephalic Neck Neck: Yes normal visual inspection Chest Chest palpation & inspection: normal inspection of the chest Breast/axilla inspection: normal inspection of the breasts and normal inspection of the axillae Breast/axilla palpation: normal palpation of the breasts and normal palpation of the axillae Resp Effort & Inspection: normal respiratory effort GI Inspection: Yes normal to inspection, No Abdominal wall edema and No distended Palpation (GI): Soft to palpation and nontender General: Yes bladder normal to palpation External Female Exam: normal external appearance and normal appearance of the urethra Speculum Exam - Vagina: normal appearance of the vagina, normal palpation and normal vaginal discharge Speculum Exam - Cervix: normal appearance of the cervix, normal palpation and nontender Bimanual exam- vagina & uterus: normal bimanual exam, normal palpation, uterine size normal, bladder normal to palpation, consistency normal, normal palpation, uterine mobility normal, uterine shape normal, No Cervical tenderness present, non-tender and no cervical motion tenderness Bimanual Exam- Adnexa, other: normal adnexae, no masses, normal and No adnexal tenderness Neuro General: patient oriented x3 Assessment & Plan Assessment & Plan (1) Hidradenitis suppurativa: Code(s): L73.2 - Hidradenitis suppurativa (2) Women's annual routine gynecological examination: Code(s): Z01.419 - Encounter for gynecological examination (general) (routine) without abnormal findings (3) control counseling: Comment: Currently happy with condom use. Code(s): Z30.09 - Encounter for other general counseling and advice on contraception (4) Cervical cancer screening: Code(s): Z12.4 - Encounter for screening for malignant neoplasm of cervix Plan -----Discussed in this visit the following: healthy balanced diet, regular and consistent exercise, getting recommended health screens, doing the best she can for her particular health concerns, kegel exercises, pap smear screening and followup recommendations, mammography screening and SBE, normal changes in cycles in her life stage--- .----I reviewed available options for Control Methods and their associated side effect profiles. In particular, we discussed the method most of interest to her. 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 She does not tend to take medicines if she does not need them but she can take and has taken might all and ibuprofen for her cramps and I reviewed how to take them and not to exceed recommended dosages. Alternatively a hot water bottle can be helpful for. Cramps. Discussed careful use of condoms to prevent unless she is ready encouraged weight loss in general for overall health and encouraged her to see her primary care provider in make sure she is up-to-date on evaluations for everything and make sure that she does not have prediabetes or diabetes and asked her to have a conversation with the home sales consultant to she said prescribed the metformin to have a full knowledge about why she is on that. She denies history of PCOS. She is very busy taking care of her boyfriend's mother or grandmother and other family members and there has been lots of challenges in the family with health issues lately so she has been caring for many members. She is happy with the hydradenitis of her T via and the effects of the Humira on it and wanted to share her success with that. I did not address smoking issues today. I did offer her testing for HIV etc. she declines it as having no need.. Orders: Orders CT NG by PCR Today Z01.419 - Encounter for gynecological examination (general) (routine) without abnormal findings Bacterial Vaginosis Panel Today Z01.419 - Encounter for gynecological examination (general) (routine) without abnormal findings Pap Smear Today Z01.419 - Encounter for gynecological examination (general) (routine) without abnormal findings Coding Level of Care Code New Pt Prev Care [id number] Diagnoses Hidradenitis suppurativa L73.2 Women's annual routine gynecological examination Z01.419 control counseling Z30.09 Cervical cancer screening Z12.4
[2023-06-26 09:26] VITALS: BP 116/72; BMI 34.8
== END 2023-06-26 10:50 | disposition home or self-care (01) ==
PROVIDERS: PCP Family Medicine; Visit Provider Advanced Practice Midwife
DX: Z01.419 Encounter for gynecological examination (general) (routine) without abnormal findings (principal); L73.2 Hidradenitis suppurativa; Z30.09 Encounter for other general counseling and advice on contraception; Z12.4 Encounter for screening for malignant neoplasm of cervix
CPT/HCPCS: 99385

== ENCOUNTER 2023-08-21 09:54 | Outpatient (AMB) | payer OTHER, SELFPAY ==
--- NOTE | 2023-08-21 10:18 | A.OFFPC_ITS ---
Vital Signs 08/21/23 10:21 Height 5 ft 9 in Weight 238 lb BMI 35.1 BP 134/74 Blood Pressure Location Rt brachial Position Sitting Pulse 76 Pulse Source Pulse Oximeter Pulse Oximetry (%) 97 Oxygen Delivery Method Room Air Intake Visit Reasons: Physical, Req TB Test Intake Note: Patient is here today for a physical. 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 per policy Accompanied by: Self / Same As Patient Allergies tramadol [TRAMADOL] Allergy (Severe, Verified 08/21/23 11:03) VOMITING, nausea and vomiting metformin Adverse Reaction (Intermediate, Verified 08/21/23 11:03) Diarrhea Medication List - Last Reconciled 08/21/23 by ELIJAH Byrd adalimumab (Humira(CF) Pen) 40 mg subcut QWEEK albuterol sulfate 90 mcg/actuation (ProAir HFA) 2 puffs inhalation Q4-6H PRN 30 days fluticasone propionate 50 mcg/actuation 2 sprays intranasal DAILY 1 week ibuprofen 600 mg PO Q6H PRN Tobacco use date assessed: 08/21/23 Dental Screening Dental Screen Date: 08/21/23 Did you have a dental visit in the last 12 months?: Yes Did you have a dental problem in the last 6 months where you did not have access to dental care?: No Was dental information given to patient?: Patient has dentist HPI HPI Comments History of Present Illness Details here today for school physical - will be starting [employer], hopes to be [employer] - [employer], last pap 1 month ago Eyes - wears glasses at , last eye exam overdue - d/t insurance changes; known R astigmatism & chronic dry eye Derm - , active [facility] Medical History Right axillary hidradenitis Genital herpes simplex Headache Asthma Anxiety and depression Surgical History Hx of surgical procedure Hx of surgical procedure History of placement of ear tubes History of wisdom tooth extraction History of tonsillectomy and adenoidectomy Family History (Updated 08/21/23 @ 10:31 by SALVATORE Graff) Father Diabetes mellitus Mother No problems noted. Maternal Grandfather Lymphoma Sister No problems noted. Brother No problems noted. Sister No problems noted. Sister No problems noted. Sister No problems noted. 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 1. Little interest or pleasure in doing things: not at all 2. Feeling down, depressed, or hopeless: several days (currently in treatment) 3. Trouble falling or staying asleep, or sleeping too much: not at all 4. Feeling tired or having little energy: not at all 5. Poor appetite or overeating: not at all 6. Feeling bad about yourself - or that you are a failure or have let yourself or your family down: not at all 7. Trouble concentrating on things, such as reading the newspaper or watching television: not at all 8. Moving or speaking so slowly that other people could have noticed. Or the opposite - being so fidgety or restless that you have been moving around a lot more than usual: not at all 9. Thoughts that you would be better off or of hurting yourself in some way: not at all Total score: 1 Depression Screening Interpretation: Negative Depression Screening Done: Yes 55363 - PHQ-9 Billing: Yes Source: Developed by Drs. David Sinha, Radha Shaw, Wil Sanchez and colleagues, with an educational kim from [employer]. Thrive Questionnaire Date Thrive assessed: 08/21/23 I am a: Patient What is your living situation today?: I have a steady place to live Within the past 12 months, did the food you bought not last and you didn't have the money to get more?: Never true Within the past 12 months, did you worry whether your food would run out before you got money to buy more?: Never true Do you have trouble paying for medicines?: No Do you have trouble getting transportation to medical appointments?: No Do you have trouble paying your heating and electricity bill?: No Do you have trouble taking care of your child, family member or friend?: No Do you have trouble with day-to-day activities such as bathing, preparing meals, shopping, managing finances, etc.?: No Are you currently unemployed and looking for a job?: No Are you interested in more education?: No Please select the resources that you would like help with: None Currently or been in a relationship where the following occur: no concerns reported AUDIT C Alcohol Use Questionnaire (AUDIT-C) 1. How often do you have a drink containing alcohol?: Never Total Score: 0 Score Reviewed/Action Taken: Yes TATA-7 AMB Questionnaire TATA-7 Date TATA - 7 assessed: 08/21/23 Feeling nervous, anxious, or on edge: 1 = Several days (currently in treatment) Not being able to stop or control worryin = Not at all Worrying too much about different things: 0 = Not at all Trouble relaxin = Not at all Being so restless that it is hard to sit still: 0 = Not at all Becoming easily annoyed or irritable: 0 = Not at all Feeling afraid as if something awful might happen: 0 = Not at all Total TATA-7 score (0-4 normal; 5-9 mild; 10-14 moderate; 15-21 severe): 1 Source: Developed by Drs. David Sinha, Radha Shaw, Wil Sanchez and colleagues, with an educational kim from [employer]. TATA-7 Assessment Billing TATA-7 Assessment Tool: TATA-7 Assessment 29281 Review of Systems Const Details: waking up at HS, unsure why. using tea, zzquil and melatonin w/o relief. started a few weeks ago. reivewed sleep hygiene. Denies as per HPI, Denies no additional complaints, Denies anorexia, Denies body aches, Denies chills, Denies daytime sleepiness, Reports difficulty sleeping, Denies excessive sweating, Denies fatigue, Denies fever(s), Denies frequent f alls, Denies headache(s), Denies increased appetite, Denies lethargy, Denies malaise, Denies night sweats, Denies poor appetite, Denies snoring, Denies stops breathing during sleep, Denies weakness, Denies weight gain, Denies weight loss and Denies other Eyes Denies as per HPI, Denies no additional complaints, Denies blind spots, Denies blurry vision, Denies exophthalmos, Denies change in vision, Denies decreased night vision, Denies diplopia, Denies eye discharge, Reports dry eyes, Denies floaters, Denies irritation, Denies itchy eyes, Denies loss of peripheral vision , Denies loss of vision, Reports other visual disturbances, Denies eye pain, Denies requires corrective lenses, Denies seeing flashes, Denies photophobia, Denies spots in vision, Denies tunnel vision and Denies other ENT Denies dysphagia, Denies headache(s), Denies neck pain and Denies odynophagia Card Denies as per HPI, Denies no additional complaints, Denies acrocyanosis, Denies chest pain, Denies chest pain at rest, Denies chest pain with activity, Denies diaphoresis, Denies syncope, Denies rapid heart rate, Denies pedal edema, Denies edema, Denies irregular heart rhythm, Denies claudication, Denies leg ulcers, Denies leg edema, Denies lightheadedness, Denies radiating jaw, neck or arm pain, Denies palpitations, Denies dyspnea, Denies dyspnea on exertion, Denies orthopnea, Denies paroxysmal nocturnal dyspnea, Denies slow heart rate and Denies other Resp Denies dyspnea, Denies dyspnea on exertion and Denies snoring GI Denies as per HPI, Denies no additional complaints, Denies abdominal pain, Denies belching, Denies melena, Denies bloating, Denies hematochezia, Denies change in bowel habits, Denies tenesmus, Denies change in stool character, Denies coffee ground emesis, Denies constipation, Denies GI cramping, Denies dysphagia, Denies excessive flatus, Denies early satiety, Denies dyspepsia, Denies heartburn, Denies fecal incontinence, Denies diarrhea, Denies loose stools, Denies nausea, Denies odynophagia, Denies vomiting, Denies hematemesis and Denies other Details: regular periods, no chance of , last period 3 weeks ago. sexually active; no concerns for STDS Reports no additional complaints Musc Denies no additional complaints, Denies as per HPI, Denies abnormal gait, Denies back pain, Reports myalgias, Denies atrophy, Denies deformity, Denies arthralgias, Denies joint swelling, Denies limited range of motion, Denies loss of height, Denies muscle cramps, Denies muscle weakness, Denies neck pain, Denies numbness, Denies radiating pain into limb, Denies stiffness, Denies tingling and Denies other Skin/Breast Reports wounds (to belly button, has been using h202) Neuro Denies abnormal gait, Denies syncope, Denies frequent falls, Denies headache(s), Denies loss of vision, Denies numbness, Denies tingling and Denies weakness Psych Details: + MDD and TATA, active w/ therapist. no meds. No SI/HI. Reports meds in past did not like it. Reports no additional complaints Endo Denies excessive sweating, Denies fatigue and Denies palpitations Aller/Immun Denies itchy eyes Physical exam (Primary Care) Vital Signs: Last Vital Signs Pulse 76 08/21/23 10:21 BP 134/74 08/21/23 10:21 Pulse Ox 97 08/21/23 10:21 Oxygen Delivery Method Room Air 08/21/23 10:21 BMI result Body Mass Index 35.1 BMI Assessment/Plan discussion: High Tobacco/Smoking Status: Tobacco use Status Tobacco use date assessed 08/21/23 08/21/23 10:34 Patient Tobacco Use Status Former Tobacco user 08/21/23 10:34 Tobacco use type Cigarette 08/21/23 10:34 e-Cigarette/Vaping Use Currently Using 08/21/23 10:34 Are you ready to quit: No Tobacco cessation counseling provided: Yes Relapse Prevention: discussed the importance of a supportive environment CPT code: Less than 3 minutes PHQ-9: PHQ-9 Score PHQ-9: Total score 1 08/21/23 10:51 Depression Screening Interpretation: Negative Thrive Assessment: Date of Thrive Assessment Date Thrive assessed 08/21/23 08/21/23 10:34 Currently or been in a relationship where the following occur: no concerns reported Const General: cooperative, comfortable and no acute distress Nutritional Appearance: overweight Orientation/consciousness: patient oriented x3 Limitations: no limitations HENMT Head: Yes normal to inspection Ears: hearing grossly normal bilaterally and unable to visualize TM (cerumen bilat) bilaterally General nose exam: Normal nasal mucous membranes and turbinates present Face and sinus: Yes normal facial exam Mouth: Normal oral and palatal mucosa present Throat: Yes posterior oropharynx normal and Yes uvula midline Eyes General: appearance normal, both eyes and all related structures Periorbital: periorbital findings normal Eyelids: Yes eyelids normal Conjunctivae: conjunctivae normal Sclerae: sclerae normal Pupils: Equal, round and reactive pupils present and Pupil accommodation reflex normal EOM: EOMs intact bilaterally Direct Ophthalmoscopy: normal light reflex, no photophobia and No photophobia Neck Neck: Yes normal visual inspection and Yes trachea midline Thyroid: Thyroid normal Lymphatic: no lymphadenopathy noted Chest Chest palpation & inspection: normal inspection of the chest Resp Effort & Inspection: normal respiratory effort Auscultation: clear to auscultation bilaterally Cardio Palpation: normal PMI Rate: regular rate Rhythm: regular rhythm Heart sounds: S1 normal heart sound present and S2 normal heart sound present Peripheral pulses: Peripheral pulses 2+ throughout GI Inspection: Yes normal to inspection Palpation (GI): Soft to palpation and No hepatosplenomegaly present Percussion: Yes normal to percussion Auscultation: normal bowel sounds General: Yes no CVA tenderness Back/Spine/Pelvis Back: no CVA tenderness Thoracic/Lumbar Spine: thoracic and lumbar spine normal to inspection Skin Other: scabbed area w/ erythema inside and above umbilicus, no warmth or drainage Neuro General: patient oriented x3 Cranial nerves: Yes Equal, round and reactive pupils present Extrem General: Yes normal to inspection, Yes full ROM and Yes capillary refill normal Office Procedures Flu Questionnaire Does the patient have a severe egg allergy?: No Does the patient have severe life threatening allergies?: No Does the patient have a fever or illness today?: No Has the patient ever had Guillain-[place] Syndrome?: No Has the patient ever had any past reaction to a flu shot?: No Immunizations flu vacc [id number] 6mos up(PF) 60 mcg(15 mcgx4)/0.5 mL IM syringe Performing Provider: ELIJAH Byrd Performing Location: [facility] [place] [facility] [place] [facility] Administered by: Sangita Anderson RN on 08/21/23 11:44 Dose Route Admin Location Dispensed Lot Number Expiration Date 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 mL IM Right Deltoid 0.5 mL [id number] 03/01/24 [id number] [employer]LAXOSMITHK[employer] VIS Given Date VIS Provided VIS Publication Date 08/21/23 Single Vaccine 21 Eligibility Eligibility Date Funding Source Not VFC Eligible 08/21/23 Private Boostrix Tdap 2.5 Lf unit-8 mcg-5 Lf/0.5 mL intramuscular syringe Performing Provider: ELIJAH Byrd Performing Location: [facility] [place] [facility] [place] [facility] Administered by: Sangita Anderson RN on 08/21/23 11:44 Dose Route Admin Location Dispensed Lot Number Expiration Date 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 mL IM Left Deltoid 0.5 mL [id number] 08/07/25 [id number] [employer]LAXOSMITHK[employer] VIS Given Date VIS Provided VIS Publication Date 08/21/23 Single Vaccine 21 Eligibility Eligibility Date Funding Source Not VFC Eligible 08/21/23 Private Assessment and Plan Assessment & Plan (1) Annual physical exam: Code(s): Z00.00 - Encounter for general adult medical examination without abnormal findings (2) Screening for tuberculosis: Code(s): Z11.1 - Encounter for screening for respiratory tuberculosis (3) Immunity status testing: Code(s): Z01.84 - Encounter for antibody response examination (4) Impacted cerumen of both ears: Code(s): H61.23 - Impacted cerumen, bilateral (5) Excoriation of abdomen: Code(s): S30.811A - Abrasion of abdominal wall, initial encounter Qualifiers: Encounter type: initial encounter Qualified Code(s): S30.811A - Abrasion of abdominal wall, initial encounter Plan: advised to wash belly button w ab soap and h20 then apply TAB TID until healed if signs of infection occur, RTO Orders: Orders MMR IgG Measles Mumps Rubella Today Z01.84 - Encounter for antibody response examination, Z11.1 - Encounter for screening for respiratory tuberculosis TDaP Immunization Today Z01.84 - Encounter for antibody response examination, Z11.1 - Encounter for screening for respiratory tuberculosis, Z23 - Encounter for immunization T Spot TB Today Z11.1 - Encounter for screening for respiratory tuberculosis Hepatitis B Surface Antibody Today Z01.84 - Encounter for antibody response examination, Z11.1 - Encounter for screening for respiratory tuberculosis Varicella IgG Antibody Today Z01.84 - Encounter for antibody response examination, Z11.1 - Encounter for screening for respiratory tuberculosis Influenza [id number] Immunization Today Z23 - Encounter for immunization Medications: New carbamide peroxide 6.5% (Debrox) 5 drps otic (ears) DAILY 5 days 15 mL 0RF BILAT EARS Patient Instructions: discussed if titers do not show immunity, she will need to start/complete series as per current recommendations. she states her mom works at [employer] and she would go there for what is needed PRN. If titers show immunity, no further action needed. please review via portal per her request. Coding Level of Care Code Est Pt Level 3 (32168) Est Pt Prev Care 18-39y(81435) Diagnoses Annual physical exam Z00.00 Screening for tuberculosis Z11.1 Immunity status testing Z01.84 Impacted cerumen of both ears H61.23 Excoriation of abdomen, initial encounter S30.042F Encounter type: initial encounter Additional Codes TATA-7 Assessment Billing - TATA-7 Assessment Tool: TATA-7 Assessment 40684 ([id number])
[2023-08-21 10:21] VITALS: BP 134/74; PULSE 76; O2SAT 97; BMI 35.1
== END 2023-08-21 11:52 | disposition home or self-care (01) ==
PROVIDERS: PCP Family Medicine; Visit Provider Nurse Practitioner Family
DX: Z00.00 Encounter for general adult medical examination without abnormal findings (principal); Z11.1 Encounter for screening for respiratory tuberculosis; Z01.84 Encounter for antibody response examination; Z23 Encounter for immunization; H61.23 Impacted cerumen, bilateral; S30.811A Abrasion of abdominal wall, initial encounter
CPT/HCPCS: 90471; 90472; 90686; 90715; 99213; 99395

== ENCOUNTER 2023-08-21 11:41 | Outpatient (REF) | payer OTHER, SELFPAY ==
[2023-08-21 14:03] LABS: HBS Num1 0.35 mIU/mL (0-7.99); ~Hepatitis B Surface Antibody NONREACTIVE (Nonreactive)
[2023-08-23 02:39] LABS: Rubeola IgG (Measles) <13.50 AU/mL
[2023-08-24 15:38] LABS: TS Negative Control Passed; TS Panel A 1; TS Panel B 0; TS Positive Control Passed; TSpotTB Negative (Negative)
== END 2023-08-21 11:42 | disposition home or self-care (01) ==
LOC: HO.WFDLDS 11:41
PROVIDERS: Visit Provider Nurse Practitioner Family
DX: Z01.84 Encounter for antibody response examination (principal); Z11.1 Encounter for screening for respiratory tuberculosis
CPT/HCPCS: 36415; 86481; 86706; 86735; 86762; 86765; 86787

== ENCOUNTER 2024-01-17 13:13 | Outpatient (AMB) | payer OTHER, SELFPAY ==
[2024-01-17 13:26] VITALS: BP 122/74; BMI 33.8
--- NOTE | 2024-01-17 13:26 | A.OFFVIS_ITS ---
Vital Signs 01/17/24 13:26 Height 5 ft 9 in Weight 229 lb BMI 33.8 BP 122/74 Intake Visit Reasons: Family planning Continuous Dryout Operator Required: No Information Interpreted: clinical only Continuous Process Coffee Roaster: Continuous Process Coffee Roaster Present Allergies tramadol [TRAMADOL] Allergy (Severe, Verified 08/21/23 11:03) VOMITING, nausea and vomiting metformin Adverse Reaction (Intermediate, Verified 08/21/23 11:03) Diarrhea Medication List - Last Reconciled 01/17/24 by Diane Harper CNM amoxicillin 500 mg PO BID ibuprofen 600 mg PO Q6H PRN Is last menstrual period known: Yes Last menstrual period: 12/28/23 Do you need a note to return to daycare/school/sports/work: No HPI HPI Family planning: Details: Wants to talk re cycles and getting in the future. She gets very regular periods and they last 5-6 days she can sometimes tell when she thinks she might be ovulating her my description of the symptoms and she does keep track on her. She does not want to get right now but she has not interested contraception right now either she was on control pills for a long time and then she was on the Mirena for 3 years she wants to just be aware of her cycle and learned as much she can about getting . She tries to eat healthy is not really focused on losing weight per se but she is less than she used to be. [place] so she is very busy she says. She is going to stick she is contemplating changing focus of her major but right now she is studying health sciences. She is with her current boyfriend for the last 4 years and he is younger than but she just wants to know about age issues with . She has hidradenitis suppurativa. She sees her inspector tubes regularly does lots of blood tests for her and had her on Humira which was helping at the start then it stopped working so she stopped it. Currently she is on just amoxicillin then when other med. She says she never was told she had diabetes or pre diabetes but she was on metformin for her HS. Her primary care provider is Dr. Riddle. She has a at least 3 surgeries for her HS. She does not believe she has ever had PCOS. Her periods have been regular when not on control. [facility] Medical History Right axillary hidradenitis Genital herpes simplex Headache Asthma Anxiety and depression Surgical History Hx of surgical procedure Hx of surgical procedure History of placement of ear tubes History of wisdom tooth extraction History of tonsillectomy and adenoidectomy Family History (Updated 01/17/24 @ 13:32 by Brandon Doherty CMA) Father Diabetes mellitus Mother No problems noted. Maternal Grandfather Lymphoma Sister No problems noted. Brother No problems noted. Sister No problems noted. Sister No problems noted. Sister No problems noted. 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 Code(s): Z12.4 - Encounter for screening for malignant neoplasm of cervix Category: Medical (2) control counseling: Comment: Currently happy with condom use. Code(s): Z30.09 - Encounter for other general counseling and advice on contraception Category: Medical (3) Encounter for fertility planning: Code(s): Z31.89 - Encounter for other procreative management Category: Medical Plan Wants to talk re cycles and getting in the future. She gets very regular periods and they last 5-6 days she can sometimes tell when she thinks she might be ovulating her my description of the symptoms and she does keep track on her. She does not want to get right now but she has not interested contraception right now either she was on control pills for a long time and then she was on the Mirena for 3 years she wants to just be aware of her cycle and learned as much she can about getting . She tries to eat healthy is not really focused on losing weight per se but she is less than she used to be. She lives on a farm so she is very busy she says. She is going to stick she is contemplating changing focus of her major but right now she is studying health sciences. She is with her current boyfriend for the last 4 years and he is younger than but she just wants to know about age issues with . She has hidradenitis suppurativa. She sees her inspector tubes regularly does lots of blood tests for her and had her on Humira which was helping at the start then it stopped working so she stopped it. Currently she is on just amoxicillin then when other med. She says she never was told she had diabetes or pre diabetes but she was on metformin for her HS. Her primary care provider is Dr. Riddle. She has a at least 3 surgeries for her HS. She does not believe she has ever had PCOS. Her periods have been regular when not on control. Reviewed issues with fertility.---I discussed with pt some of the optimal strategies for planning a , including achieving the best health she can before , including heathy balanced diet, exercise, wt loss to ideal BMI if appropriate, avoiding toxic substances and medications, not smoking, and taking a multivitamin w folic acid daily. Any specific health concerns should be managed before seeking/ putting oneself at risk of pregancy. In addition I reviewed normal cycles, fertility awareness and signs of ovulation, and timing to avoid, and achieve when she feel ready. I also discussed emotional and relationship and support readiness before embarking on . --Discussed that after age 35 the risks of infertility, risks of miscarriage, and chromosomal abnormalities are increased, as well as the risk of complications should she can see if, including diabetes and hypertensive disorders of , pre term delivery and others. I recommend starting vitamins if she has not already started. Discussed that these risks or go up with time. They are much more increased if somebody has any pre-existing conditions. Encouraged her to keep very close track of her cycles when she is fertile when she has intercourse consider doing 0 Shayy's when she starts trying have at least 6 months of records and if no success then consider requesting referral to [facility] fertility practices now [facility] [place] [facility]. Discussed that eggs to get older with time and fertility goes down commenced certainly and risks of go up do her best to try and be in his best health as possible try to lose in weight necessary beforehand also clarify with her other providers whether not she ever was pre that it in her blood sugar range she does not believe so but it would be unusual to be on metformin for other reasons. She is also contemplating career in either midwifery or ultrasound technology or being a psychologist discussed seeking out [employer] programs for experience. Coding Level of Care Code Est Pt Level 3 (13167) Diagnoses Cervical cancer screening Z12.4 control counseling Z30.09 Encounter for fertility planning Z31.89
== END 2024-01-17 14:34 | disposition home or self-care (01) ==
PROVIDERS: PCP Family Medicine; Visit Provider Advanced Practice Midwife
DX: Z30.09 Encounter for other general counseling and advice on contraception (principal); Z31.89 Encounter for other procreative management
CPT/HCPCS: 99213

== ENCOUNTER → 2024-01-17 13:13 | Outpatient (BNVA) | payer OTHER, SELFPAY | PROVIDERS: PCP Family Medicine; Visit Provider Advanced Practice Midwife | DX: Z30.09 Encounter for other general counseling and advice on contraception (principal); Z31.89 Encounter for other procreative management | CPT/HCPCS: 99212 ==

== ENCOUNTER 2024-06-17 06:38 | Emergency (ER) | payer OTHER, SELFPAY ==
--- NOTE | ~2024-06-17 | XR_ITS ---
EXAMINATION: XR CHEST 2 VIEW CLINICAL INFORMATION: Shortness of breath and productive cough COMPARISON: 02/21/2021 TECHNIQUE: PA and lateral views of the chest obtained. FINDINGS: The lungs are clear. There are no pleural effusions. The cardiomediastinal silhouette is normal. XR/XR chest 2V IMPRESSION: No acute cardiopulmonary disease. Electronically signed by: Eugenio Brown MD 06/17/2024 08:02 AM EDT
[2024-06-17 06:42] VITALS: BP 129/87; PULSE 89; RESP 18; TEMP 36.8; O2SAT 96; BMI 32.3
[2024-06-17 07:28] LABS: MANUAL DIFF FLAG NO
[2024-06-17 07:29] LABS: Basophils Absolute Auto 0.1 X10*3/uL (0.0-0.2); Basophils Percent Auto 0.6 % (0-2); Eosinophils Absolute Auto 0.3 X10*3/uL (0.0-0.4); Eosinophils Percent Auto 3.3 % (0-4); Hematocrit 36.4 % (37.0-47.0); Hemoglobin 12.4 g/dl (12.0-16.0); Imm Gran Abs Auto 0.03 X10*3/uL (0.00-0.03); Imm Gran Pct Auto 0.4 % (0.0-0.4); Lymphocytes Absolute Auto 3.1 X10*3/uL (1.2-4.9); Lymphocytes Percent Auto 39.4 % (20-40); Mean Corpuscular HGB Conc 34.1 g/dl (31.0-35.0); Mean Corpuscular Hemoglobin 29.2 pg (27.0-33.0); Mean Corpuscular Volume 85.8 fL (80.0-98.0); Mean Platelet Volume 10.3 fL (9.4-12.3); Monocytes Absolute Auto 0.4 X10*3/uL (0.1-1.2); Monocytes Percent Auto 5.5 % (2-11); Neutrophils Percent Auto 50.8 % (45-73); Platelet Count 235 X10*3/uL (160-400); Red Blood Count 4.24 X10*6/uL (4.20-5.50); Red Cell Distribution Width 12.6 % (11.0-16.0); White Blood Count 7.8 X10*3/uL (4.8-10.8)
[2024-06-17 07:46] VITALS: BP 114/72; PULSE 76; RESP 18; TEMP 36.6; O2SAT 98
[2024-06-17 07:51] LABS: Alanine Aminotransferase 19 U/L (0-31); Albumin Level 3.8 g/dL (3.5-5.0); Alkaline Phosphatase 59 U/L (39-117); Anion Gap 12 (12-20); Aspartate Amino Transferase 12 U/L (5-31); Bilirubin Total 0.3 mg/dL (0.0-1.0); Blood Urea Nitrogen 11 mg/dL (9-16); Calcium 9.1 mg/dL (8.4-10.2); Carbon Dioxide 20 mmol/L (22-29); Chloride 113 mmol/L (96-108); Estimated Glomerular Filt Rate > 60; Glucose Random 103 mg/dL (60-115); Potassium 3.7 mmol/L (3.3-5.1); Sodium 141 mmol/L (135-145); Total Protein 7.4 g/dL (6.5-8.0)
--- NOTE | 2024-06-17 07:59 | ED_ITS ---
HPI - URI/Sore Throat General Chief Complaint: Upper Respiratory Symptoms Stated Complaint: flu like Time Seen by Provider: 06/17/24 07:39 Source: patient, RN notes reviewed and old records reviewed Mode of arrival: ambulatory History of Present Illness ED Provider: Richard Newsome PA-C HPI Narrative: 29 yo F w/PMHx depression with anxiety, nicotine dependence cigarette smoker, bronchitis, migraine presents to the ED c/o cough with sputum production, mild congestion x1 week. Patient states that the cough has been worsening and that she is producing a clear-yellow sputum. Denies hemoptysis. Reports the cough is worse with lying down and reports chest discomfort with deep inhalation and cough. Patient has tried over the counter cough, cold and flu medication with mild improvement. Patient states that her boyfriend came home sick from work in that she likely caught this from him. Endorses a fever last week x3 days, SOB, sore throat, fatigue. Denies CP, N/V, diarrhea, dizziness. No recent travel. No further complaints. MD elicited complaint: cough and nasal congestion Related Data Home Medications ?Medication ?Instructions ?Recorded ?Confirmed amoxicillin 500 mg capsule 500 mg PO BID 01/17/24 01/17/24 Previous Rx's ?Medication ?Instructions ?Recorded ibuprofen 600 mg tablet 600 mg PO Q6H PRN pain #30 tabs 10/26/21 albuterol sulfate 90 mcg/actuation 2 puff inhalation Q4-6H PRN 06/17/24 aerosol inhaler shortness of breath or wheezing #6.7 grams benzonatate 100 mg capsule 100 mg PO TID PRN cough #14 caps 06/17/24 prednisone 20 mg tablet 40 mg (2 x 20 mg) PO DAILY 5 days 06/17/24 #10 tabs Allergies Allergy/AdvReac Type Severity Reaction Status Date / Time tramadol [TRAMADOL] Allergy Severe VOMITING, Verified 06/17/24 06:47 nausea and vomiting Review of Systems 2 Review of Systems: Yes all other systems are reviewed and are negative Constitutional: Constitutional: Reports as per [facility] Past Medical History Attestation statement: The following information was validated with the patient. Source: old records reviewed Medical History Right axillary hidradenitis Genital herpes simplex Headache Asthma Anxiety and depression Surgical History Hx of surgical procedure Hx of surgical procedure History of placement of ear tubes History of wisdom tooth extraction History of tonsillectomy and adenoidectomy Family History Family History Father Diabetes mellitus Mother No problems noted. Maternal Grandfather Lymphoma Sister No problems noted. Brother No problems noted. Sister No problems noted. Sister No problems noted. Sister No problems noted. Maternal Aunt Breast cancer Paternal Aunt Cervical cancer Other Mental health disorder Substance use disorder Social History Social History Household Members: Significant Other and Family Housing: House Alcohol intake: current Alcohol intake frequency: holidays/special occasions only Comment: pain with movement only Patient Tobacco Use Status: Former Tobacco user Tobacco use type: Cigarette Cigarettes Per Day: 7 Years Smoked: 3 Smoked in Last 30 Days: Yes e-Cigarette/Vaping Use: Currently Using Use of substances other than those prescribed or required for medical reasons: Yes Substance Use Type: Marijuana Substance Use Frequency: Weekly Last Used Substance: Days (ago) Advance Directives: No Patient : No service: No Current occupational status: employed and student 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 Sexual orientation: Straight/Heterosexual Gender identity: Female Cognitive needs: No Hearing needs: No Vision needs: No Physical Exam 2 Vital Signs: Vital Signs: Last Vital Signs Temp 97.6 F 06/17/24 11:11 Pulse 87 06/17/24 11:11 Resp 16 06/17/24 11:11 BP 121/63 06/17/24 11:11 Pulse Ox 99 06/17/24 11:11 O2 Del Method Room Air 06/17/24 11:11 BMI result Body Mass Index 32.3 Const: General: cooperative, healthy appearing and no acute distress O rientation/consciousness: patient oriented x3 Limitations: no limitations HEENT: Head: Yes normal to inspection and Yes atraumatic Ears: hearing grossly normal bilaterally and TM's normal bilaterally General nose exam: N ormal external nose present Face and sinus: Yes normal facial exam Throat: No posterior oropharynx normal (mild erythema) and Yes uvula midline Eyes: General: appearance normal, both eyes and all related structures EOM: EOMs intact bilaterally Neck: Neck: Yes normal visual inspection and Yes no meningeal signs Chest: Chest palpation & inspection: normal inspection of the chest Resp: Effort & Inspection: normal respiratory effort and Actively coughing Auscultation: wheezes expiratory wheezes (Bibasilar) and other (coarse breath sounds throughout ) Cardio: Rate: regular rate Heart sounds: S1 normal heart sound present and S2 normal heart sound present GI: Inspection: Yes normal to inspection Skin: Rashes: no rashes Wounds: no wounds Neuro: General: patient oriented x3, tone normal and no meningeal signs C ranial nerves: Yes CN's II-XII intact bilaterally Gait exam (Neuro): Normal gait present Extrem: General: Yes normal to inspection, Yes no pedal edema and Yes no calf tenderness Course Course Course Narrative: -Viral swabs including COVID-19, flu, RSV negative. -CXR unremarkable showing no acute cardiopulmonary disease. Lab work unremarkable. >On re-evaluation, patient with symptomatic improvement after nebulizer treatment. Inspiratory and expiratory wheezes appreciated throughout. Will give dose of p.o. prednisone Plan for respiratory therapy re- evaluation/additional DuoNeb. Smoking cessation education provided. -1101--on re-evaluation after 2nd DuoNeb patient reports symptomatic improvement. Lung sounds much improved, still slight residual and expiratory wheeze. Patient feels safe for discharge home at this time. Will supply with albuterol inhaler prior to discharge. Discussed compliance with medications and close re-evaluation with PCP. Results discussed with patient including worrisome signs and symptoms and strict return precautions, and when to return to the emergency department. They verbalized understanding and feel safe for discharge at this time. Medications Administered Discontinued Medications Generic Name Dose Route Start Last Admin Trade Name Brayanq PRN Reason Stop Dose Admin Albuterol Sulfate 5 mg/ 0 mg 06/17/24 08:11 06/17/24 08:17 Albuterol/Ipratropium 3 ml INHALE 06/17/24 08:12 1 each ONCE ONE Administration Albuterol Sulfate 2.5 mg/ 0 mg 06/17/24 09:46 06/17/24 09:53 Albuterol/Ipratropium 3 ml INHALE 06/17/24 09:47 1 dose ONCE ONE Administration Prednisone 40 mg 06/17/24 09:00 06/17/24 09:21 Prednisone 20 Mg Tablet PO 06/17/24 09:01 40 mg ONCE ONE Administration Medical Decision Making Medical Decision Making [facility] Narrative: 29 yo F with a PMHx depression with anxiety, nicotine dependence cigarette smoker, bronchitis, migraine presents to the ED c/o cough with sputum production, mild congestion x1. On exam, patient is lying on stretcher, nontoxic appearing, talking in complete sentences, no respiratory distress, active cough appreciated. Coarse lung sounds throughout with bibasilar expiratory wheeze, saturating well on room air at 98%. Concern for COVID-19, flu, RSV, other viral illness, bronchitis, pneumonia. Unlikely pulmonary embolism or ACS. Plan: Labs, viral swabs including COVID-19, flu, RSV, CXR, bronch protocol, re- evaluation. Please refer to course for remaining clinical decision making, interpretation of labs/imaging results, and discussions with consultants and/or family members. Differential Diagnosis Differential Diagnoses: The differential diagnosis associated with the presentation includes As above Admission/Observation Consideration of admission/observation: Escalation of care including admission/observation considered Lab Data [facility] Lab Attestation statement: I reviewed the patient's lab results. 06/17/24 07:22 06/17/24 07:22 Labs: Lab Results 06/17/24 Range/Units 07:22 WBC 7.8 (4.8-10.8) X10*3/uL RBC 4.24 (4.20-5.50) X10*6/uL Hgb 12.4 (12.0-16.0) g/dl Hct 36.4 L (37.0-47.0) % MCV 85.8 (80.0-98.0) fL MCH 29.2 (27.0-33.0) pg MCHC 34.1 (31.0-35.0) g/dl RDW 12.6 (11.0-16.0) % Plt Count 235 D (160-400) X10*3/uL MPV 10.3 (9.4-12.3) fL Immature Gran % (Auto) 0.4 (0.0-0.4) % Neut % (Auto) 50.8 (45-73) % Lymph % (Auto) 39.4 (20-40) % [place] % (Auto) 5.5 (2-11) % Eos % (Auto) 3.3 (0-4) % Baso % (Auto) 0.6 (0-2) % Lymph # (Auto) 3.1 (1.2-4.9) X10*3/uL [place] # (Auto) 0.4 (0.1-1.2) X10*3/uL Eos # (Auto) 0.3 (0.0-0.4) X10*3/uL Baso # (Auto) 0.1 (0.0-0.2) X10*3/uL Abs Immat Gran (auto) 0.03 (0.00-0.03) X10*3/uL Absolute Neuts (auto) 4.0 (2.0-8.3) x10*3/uL Absolute Nucleated RBC 0.000 (0.0-0.012) X10*3/uL Nucleated RBC % (auto) 0.0 (0.0-0.2) /100WBC Sodium 141 (135-145) mmol/L Potassium 3.7 (3.3-5.1) mmol/L Chloride 113 H (96-108) mmol/L Carbon Dioxide 20 L (22-29) mmol/L Anion Gap 12 (12-20) BUN 11 (9-16) mg/dL Creatinine 0.70 (0.5-1.4) mg/dL Estim Creat Clear Calc 158.0 Estimated GFR > 60 Random Glucose 103 (60-115) mg/dL Calcium 9.1 (8.4-10.2) mg/dL Total Bilirubin 0.3 (0.0-1.0) mg/dL AST 12 (5-31) U/L ALT 19 (0-31) U/L Alkaline Phosphatase 59 (39-117) U/L Total Protein 7.4 (6.5-8.0) g/dL Albumin 3.8 (3.5-5.0) g/dL Influenza Type A (PCR) NEGATIVE (Negative) Influenza Type B (PCR) NEGATIVE (Negative) RSV RNA Qual (PCR) NEGATIVE (Negative) SARS-CoV-2 RNA (RT-PCR) NEGATIVE (Negative) Independent Interpretation I performed an independent interpretation of an: Plain X-Ray Radiology Impression Discussion of test interpretation with radiology: I have reviewed the radiologist's reading. External Record Review External record reviewed: Inpatient record, Office record, Outpatient record, Prior outpatient labs, Prior outpatient radiology, Primary care record and Outside ED record Tests considered The following testing was considered but not selected: As above Prescription Management I considered prescription management with: Other Chronic Conditions Patient?s care impacted by: Other Social Determinants Patient?s care significantly limited by Social Determinants of Health including: Other Social Determinant of Health Critical Care Time Critical Care Time Critical Care Time: Yes Total Critical Care Time: 32 Attestation: I have personally provided critical care time exclusive of time spent on separately billable procedures. Time includes review of lab data, radiology results, discussion with consultants, and monitoring for potential decompensation. Intervention performed as documented. Discharge Plan Discharge Clinical Impression: Bronchitis Patient Disposition: Home, Self-Care Instructions: Acute Bronchitis (ED) Additional Instructions: Your x-ray does not show pneumonia. You tested negative for COVID, flu, RSV Please continue to take prednisone as prescribed. In addition use albuterol inhaler If you have persistent or worsening shortness of breath, chest discomfort, fever return to the emergency department Please have close follow-up with your doctor Prescriptions: New albuterol sulfate 90 mcg/actuation HFA aerosol inhaler 2 puff inhalation Q4-6H PRN (Reason: shortness of breath or wheezing) Qty: 6.7 0RF prednisone 20 mg tablet 40 mg PO DAILY 5 Days Qty: 10 0RF benzonatate 100 mg capsule 100 mg PO TID PRN (Reason: cough) Qty: 14 0RF No Action ibuprofen 600 mg tablet 600 mg PO Q6H PRN (Reason: pain) Qty: 30 2RF amoxicillin 500 mg capsule 500 mg PO BID Referrals: Physician,Unknown J [Primary Care Provider] - Interventions: ED Discharge Assessment Last Done: 06/17/24 11:11 Discharge Date/Time: 06/17/24 11:13 Print Language: [place] Citizen
[2024-06-17 08:08] LABS: Influenza A PCR NEGATIVE (Negative); Influenza B PCR NEGATIVE (Negative); Resp Syncy Virus RNA Qual PCR NEGATIVE (Negative); SARS COV2 PCR INHOUSE NEGATIVE (Negative)
[2024-06-17] MEDS: Albuterol Sulfate 5 MG, Albuterol/Iprat 2.5/0.5MG 3 ML 3 ML INHALE (08:17)
[2024-06-17 08:19] VITALS: PULSE 91; RESP 22; O2SAT 98
[2024-06-17] MEDS: predniSONE 20 MG TABLET 40 MG PO (09:21)
[2024-06-17] MEDS: Albuterol Sulfate 2.5 MG, Albuterol/Iprat 2.5/0.5MG 3 ML 3 ML INHALE (09:53)
[2024-06-17 09:54] VITALS: PULSE 90; RESP 18; O2SAT 99
[2024-06-17 11:11] VITALS: BP 121/63; PULSE 87; RESP 16; TEMP 36.4; O2SAT 99
== END 2024-06-17 11:13 | disposition home or self-care (01) ==
PROVIDERS: Emergency Provider Emergency Medicine
DX: J40 Bronchitis, not specified as acute or chronic (principal); R06.02 Shortness of breath; R50.9 Fever, unspecified; J45.909 Unspecified asthma, uncomplicated; Z03.818 Encounter for observation for suspected exposure to other biological agents ruled out; Z87.891 Personal history of nicotine dependence; Z79.899 Other long term (current) drug therapy
CPT/HCPCS: 0241U; 36415; 71046; 80053; 85025; 94640; 99284; 99285

== ENCOUNTER 2025-06-07 12:51 | Outpatient (REF) | payer OTHER, SELFPAY ==
[2025-06-07 16:45] LABS: Bacterial Vaginosis PCR NEGATIVE (Negative); Candida Group PCR NOT DETECTED (Not Detect); Candida glab krusei PCR NOT DETECTED (Not Detect); Trichomonas vaginalis PCR NOT DETECTED (Not Detect)
[2025-06-07 17:18] LABS: CT PCR NOT DETECTED (Not Detect.); NG PCR NOT DETECTED (Not Detect.)
== END 2025-06-07 12:52 | disposition home or self-care (01) ==
LOC: HO.LNP 12:51
PROVIDERS: Visit Provider Obstetrics & Gynecology
DX: N76.0 Acute vaginitis (principal); Z20.2 Contact with and (suspected) exposure to infections with a predominantly sexual mode of transmission
CPT/HCPCS: 81515; 87491; 87591; 99202

== ENCOUNTER 2025-06-07 12:51 | Outpatient (AMB) | payer OTHER, SELFPAY ==
--- NOTE | 2025-06-07 12:54 | MHC.OFFVIS ---
Vital Signs 06/07/25 12:59 Height 5 ft 9 in Weight 218 lb BMI 32.2 Intake Visit Reasons: reoccurent Vaginitis Activities Volunteer Required: No Information Interpreted: non-clinical & clinical Principal Systems Engineer: Principal Systems Engineer Present (Margy CHASE) Accompanied by: Aunt Allergies tramadol (TRAMADOL) Allergy (Severe, Verified 06/07/25 13:01) VOMITING, nausea and vomiting Is last menstrual period known: Yes Last menstrual period: 05/13/25 HPI Comments Details: Presenting complaining of vulvovaginal irritation with no foul odor, the patient has history of recur hidradenitis suppurativa especially in the vulvar area [facility] Medical History Right axillary hidradenitis Genital herpes simplex Headache Asthma Anxiety and depression Surgical History Hx of surgical procedure Hx of surgical procedure History of placement of ear tubes History of wisdom tooth extraction History of tonsillectomy and adenoidectomy Family History Father Diabetes mellitus Mother No problems noted. Maternal Grandfather Lymphoma Sister No problems noted. Brother No problems noted. Sister No problems noted. Sister No problems noted. Sister No problems noted. 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 Sexual orientation: Straight/Heterosexual Gender identity: Female Cognitive needs: No Hearing needs: No Vision needs: No Female Reproductive History Menstrual Age of Menarche: 13 Duration of menses: 3-5 days Date of last menstrual period: 05/13/25 Review of Systems Const All systems reviewed & are unremarkable except as noted in HPI and below Physical Exam Vital Signs: BMI result Body Mass Index 32.2 General: Yes no CVA tenderness External Female Exam: No normal external appearance (Bilateral multiple scar tissue from HS) and normal appearance of the urethra Speculum Exam - Vagina: normal appearance of the vagina, normal palpation, no lesions and no masses Speculum Exam - Cervix: normal appearance of the cervix, normal palpation, no lesions, no masses and nontender Bimanual exam- vagina & uterus: normal bimanual exam, normal palpation, uterine size normal, normal palpation, uterine shape normal, No Cervical tenderness present and non-tender Bimanual Exam- Adnexa, other: normal adnexae Back/Spine/Pelvis Back: no CVA tenderness Assessment & Plan Assessment & Plan (1) Vulvovaginitis: Code(s): N76.0 - Acute vaginitis Category: Medical Plan: GC/CT with BV panel collected. Will check the results and treat accordingly. Instructions given the patient to call in case of recurrence of her symptoms. All questions answered, the patient verbalized understanding Coding Level of Care Code New Pt Level 3 (83749) Diagnoses Vulvovaginitis N76.0
[2025-06-07 12:59] VITALS: BMI 32.2
--- OUTSIDE RECORDS SUMMARY | 2025-06-07 15:14 | XMS_ITS | Clinical Summary ---
Author Organization [facility] Address [address] [place], [place] [id number] Phone Care Team Providers Care Rehabilitation Therapist Name Role Phone Toño Riddle MD Primary Care Provider Allergies Active Allergy Reactions Criticality Noted Date Comments Tramadol Nausea and/or Vomiti ng,Nausea And Vomiting Low 06/09/2020 Medications GOMEZ BEAN, PEN 40 mg/0.4 mL pen kit 09/01/2021 Active ibuprofen (ADVIL,MOTRIN) 600 MG tablet Take 600 mg by mouth every 6 (six) hours as needed. 06/27/2021 Active topiramate (TOPAMAX) 50 MG tablet Take 50 mg by mouth daily. 08/11/2021 Active Active Problems No known active problems Social History Tobacco Use Types Packs/Day Years Used Date Smoking Tobacco: Every Day Smokeless Tobacco: Never Education Answer Date Recorded Are you interested in more education? Not on patricia e 12/29/2022 Are you concerned about learning? Not on file 12/29/2022 No 12/29/2022 No 12/29/2022 Digital Access Answer Date Recorded No 01/27/2023 No 01/27/2023 No 01/27/2023 Reliable internet access at home? Not on file 01/27/2023 Device with a working camera? Not on file Comments Unknown Sex and Gender Information Value Date Recorded Sex Assigned at Not on file Legal Sex Female 2:30 PM EST Gender Identity Not on file Sexual Orientation Not on file Last Filed Vital Signs Vital Sign Reading Time Taken Comments Blood Pressure 124/76 09/07/2021 3:28 PM EST Pulse 88 09/07/2021 3:28 PM EST Temperature 37.2 C (99 F) 09/07/2021 3:28 PM EST Respiratory Rate 18 09/07/2021 3:28 PM EST Oxygen Saturation 97% 09/07/2021 3:28 PM EST Inhaled Oxygen Concentration - - Weight 111.1 kg (245 lb) 09/07/2021 3:28 PM EST patient reports Height - - Body Mass Index - - Plan of Treatment Health Maintenance Due Date Last Done Comments Adult Td,Tdap Booster 1995 COVID-19 VACCINE (#1) 2000 DEPRESSION SCREENING 2007 SMOKING Hx and SMOKELESS TOB ACCO SCREENING 2008 HEPATITIS C SCREENING 2013 HIV ONE-TIME SCREENING (18-6 5 YEARS) 2013 PNEUMOCOCCAL VACCINES (0-49 years) (1 of 2 - PCV) 2014 PAP SMEAR 2016 INFLUENZA VACCINE (#1) 2025 HEPATITIS A VACCINES Aged Out No long er eligible based on patient's age to complete this topic HIB VACCINES Aged Out No longer eligi ble based on patient's age to complete this topic MENINGOCOCCAL VACCINES (ACWY) Aged Out No longer eligible based on patient's age to complete this topic MENINGOCOCCAL VACCINES (B) Aged Out N o longer eligible based on patient's age to complete this topic Medical Devices Not on file [place] [id number] ACO ACO ACO ACO [employer] ACO ACO ACO ACO [facility] A[place] [id number] Care Teams Rehabilitation Therapist Relationship Specialty Start Date End Date Toño Riddle MD [address] [place] [address] PCP - General 09/07/21 Additional Source Comments The information contained in this document represents components of the legal health record. It is not the complete legal health record.[facility]
== END 2025-06-07 13:14 | disposition home or self-care (01) ==
LOC: HO.HWS 12:51
PROVIDERS: Visit Provider Obstetrics & Gynecology
DX: N76.0 Acute vaginitis (principal)
CPT/HCPCS: 99203

== ENCOUNTER 2025-07-23 10:02 | Outpatient (AMB) | payer OTHER, SELFPAY ==
--- NOTE | 2025-07-23 10:07 | MHC.OFFVIS ---
Vital Signs 07/23/25 10:09 Height 5 ft 9 in Weight 218 lb BMI 32.2 Intake Visit Reasons: recurrent yeast inf Health Analyst: Health Analyst Present (Juju) Accompanied by: Self / Same As Patient Allergies tramadol (TRAMADOL) Allergy (Severe, Verified 07/23/25 10:19) VOMITING, nausea and vomiting Medication List - Last Reconciled 07/23/25 by Diane Harper CNM albuterol sulfate 90 mcg/actuation (Ventolin HFA) 2 puffs inhalation Q4-6H PRN ibuprofen 600 mg PO Q6H PRN metformin 500 mg PO BID spironolactone 100 mg PO BEDTIME Is last menstrual period known: Yes Last menstrual period: 06/29/25 Post menopausal: No Patient : No HPI HPI recurrent yeast inf: Details: Patient is here because she believes she has had 4 different yeast infections back to back in the last 4 months. She suffers from HS as well and it has been very severe and she thinks the drainage from that is aggravating it she is not contracepting. she had been using condoms but she stopped using them thinking it was irritating the yeast. She is open to . She is a smoker but says she has not had any nicotine in almost 48 hours. She has too busy a lifestyle to remember to take her meds. she has a alarms on her phones but she hits snooze because she will be in the middle of something [place] the farm with her animals, and then when she gets back to it she has missed the whole day without her meds, so she has not been taking her metformin or her spironolactone in quite some time, perhaps a month. She does not remember when she last saw her wool hat forming machine tender who manages her HS. and she has also had different lesions cut out but they just came back. She also has not seen her primary care provider in a while, but she has made an appointment with him for the future. she also has found a HS so painful that she has trouble sleeping and she is inquiring about something stronger than ibuprofen or add will to help with the pain and I definitively declined. She is opposed to using any kind of control says in that she was on it for years since she was young and does not want to be on it anymore. She had been on Humira and another medications similar but did some reading about it and did not want to risk anything happening to her liver so she stopped it. [facility] Medical History Right axillary hidradenitis Genital herpes simplex Headache Asthma Anxiety and depression Surgical History Hx of surgical procedure Hx of surgical procedure History of placement of ear tubes History of wisdom tooth extraction History of tonsillectomy and adenoidectomy Family History Father Diabetes mellitus Mother No problems noted. Maternal Grandfather Lymphoma Sister No problems noted. Brother No problems noted. Sister No problems noted. Sister No problems noted. Sister No problems noted. 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 Sexual orientation: Straight/Heterosexual Gender identity: Female Cognitive needs: No Hearing needs: No Vision needs: No Female Reproductive History Menstrual Age of Menarche: 13 Duration of menses: 3-5 days Date of last menstrual period: 06/29/25 control method: none Total pregnancies: 0 Date of last pap smear: 06/26/23 (negative pap smear) History of abnormal pap smear: No Physical Exam Vital Signs: BMI result Body Mass Index 32.2 Other: Has numerous scarred areas on her buttocks and groin from her hidradenitis suppurativa there is superficial healing of the epithelial surface but there are some open areas as well that have some scant clear moisture. No current evident active boils. The mucosa surfaces are not inflamed pink other than the surface of the skin that is inflamed pink from the HS. \. Vaginal mucosa is light pink scant white discharge possibly consistent with Monistat use or normal discharge Results Reviewed Results Reviewed: Name: Ekaterina Duarte Age/Sex: 28/F Attending: Diane Harper CNM : 1995 Submitted by: Diane Harper CNM Copies to: Toño Riddle MD MR #: [id number] Status: DEP REF Collected: 06/26/23 Location: [facility] Received: 06/27/23 Interpretation Satisfactory for evaluation. Mild inflammation. Negative for intraepithelial lesion or malignancy. Clinical Information LMP: 06/06/23 Previous PAP test: 2018, Unknown findings Material Received ThinPrep-Cervical Copies To Toño Riddle MD [address] [place], [place] [id number] Diane Harper CNM [address] [place] [address] Dr. Marie [address] [place] [id number] Electronically Signed By: MARIE Smalls (ASCP) 06/28/23 1052 The Pap Test is a screening procedure with the inherent possibility of both false negative and false positive results. Results should be interpreted in the context of historic and current clinical findings. Reliability of the Pap Test is enhanced by performing the test on a regular repetitive basis. Patient: Ekaterina Duarte Age/Sex: 28/F MR#: [id number] Page 1 of 1 Assessment & Plan Assessment & Plan (1) Vulvovaginitis: Comment: Patient believes it is yeast, but currently there is HS evident in various stages of healing and inflammation. we will await test results, yeast not immediately obvious. Code(s): N76.0 - Acute vaginitis Category: Medical (2) Hidradenitis suppurativa: Comment: Stopped Humira and other similar medications has been on metformin and spironolactone said she refused OCPs which were also recommended by wool hat forming machine tender. Has missed metformin and spironolactone for quite a while Code(s): L73.2 - Hidradenitis suppurativa Category: Medical (3) Nicotine dependence: Code(s): F17.200 - Nicotine dependence, unspecified, uncomplicated Category: Medical (4) control counseling: Comment: Currently happy with condom use..//07/23/2025 says she has not used condoms recently I recommend abstinence until her skin is healed and discussed the issues. She is 100% against any hormonal method of control at this time. Code(s): Z30.09 - Encounter for other general counseling and advice on contraception Category: Medical (5) Depression with anxiety: Code(s): F41.8 - Other specified anxiety disorders Category: Medical Plan Patient is here because she believes she has had 4 different yeast infections back to back in the last 4 months. She suffers from HS as well and it has been very severe and she thinks the drainage from that is aggravating it she is not contraceptive thing she had been using condoms but she stopped using them thinking it was irritating the yeast. She is open to . She is a smoker but says she has not had any nicotine in almost 48 hours. She has to busy a lifestyle to remember to take her meds she has a alarms on her phones but she hits news because she will be in the middle of something and then when she gets back to it she has missed the whole day without her meds so she has not been taking her metformin or her spironolactone in quite some time perhaps a month. She does not remember when she last saw her wool hat forming machine tender who manages her HS and she has also had different lesions cut out but they just came back. She also has not seen her primary care provider in a while but she has made an appointment she also has found a HS so painful that she has trouble sleeping and she is enquiring about something stronger than ibuprofen or add will to help with the pain and I declined. She is opposed to using any kind of control says in that she was on it for years since she was young and does not want to be on it anymore. She had been on Humira and another medications similar but did some reading about it and did not want to risk anything happening to her liver so she stopped it. Testing was done during the visit for gonorrhea chlamydia trichomoniasis as well as yeast and BV it is certainly possible that she might have either yeast or BV but I am not prescribing at this point because neither is clinically evident. Discussed the importance of getting back to basic self-care. Acknowledged the frustration of the painful challenging situation with the HS but following the recommendations of her wool hat forming machine tender is important and she needs to touch base with her and be seen by her and follow the recommendations and get back on her medications if they were helping. She is also very much needs to see her primary care provider discussed the importance of attending to all of her other health issues including her smoking. Encouraged the patient to continue to not restart the smoking suggested discussing use of the patch to help with smoking cessation, which she declined any interested in in and believes she did not need because she had no craving in the last almost 48 hours. She does acknowledge that she smokes weed. She discussed presence of several animals in the house and I recommend isolating her underwear from them so that there is no further irritation to her skin where she has sores. discussed showering once her twice a day. She discussed that the wool hat forming machine tender recommended adding a cap full of bleach to her bath water and I could not offer an opinion about this but expressed concern about her doing anything that would give aggravate her situation more. I recommend no sex, or other irritation, or friction, until her skin is better healed from the HS at her buttocks and groin, and also discussed risks of and that she would have some health concerns if she did get and she should initiate care at the beginning of the at [facility]. She has absolutely no interested in any other control method and flatly refused. Also she said that she had been recommended to lose a lot of weight to help with the HS and she had lost some weight but she is still suffering from it and so she did not think that that was useful advice, and also that she had read that it did not help others. She said she has lost weight but she thinks it was mostly from depression. She says she had been prescribed meds but did not want to be on them. She says she does have a therapist. Did congratulate her on her weight loss, I urged her to continue to work on trying to be as healthy as she can and to focus her efforts on quitting smoking completely trying to eat better take better care of herself prioritize her health and discussed also consideration of [id number] magnesium to help with sleep, and strongly recommend that she see her primary care provider and wool hat forming machine tender both very soon and follow their advice she inquired about other [id number] substances she had bought for skin care and I could not offer opinions on these and recommended clean cool or warm water depending on the concern and limiting additions to what the wool hat forming machine tender recommends. Coding Level of Care Code Est Pt Level 3 (79125) Diagnoses Vulvovaginitis N76.0 Hidradenitis suppurativa L73.2 Nicotine dependence F17.200 control counseling Z30.09 Depression with anxiety F41.8
[2025-07-23 10:09] VITALS: BMI 32.2
--- OUTSIDE RECORDS SUMMARY | 2025-07-23 10:40 | XMS_ITS | Clinical Summary ---
Author Organization [facility] Address [address] [place], [place] [id number] Phone Care Team Providers Care Green Belt Name Role Phone Toño Riddle MD Primary [...] topic Medical Devices Not on [place] [address] [place] [address] ACO ACO ACO ACO [employer] ACO ACO ACO ACO [facility] [place] [id number] Care Teams Green Belt Relationship Specialty Start Date End Date Toño Riddle MD PCP - General 09/07/21 Additional Source Comments The information contained in this document represents components of the legal health record. It is not the complete legal health record.[facility]
== END 2025-07-23 13:26 | disposition home or self-care (01) ==
LOC: HO.HWS 10:02
PROVIDERS: Visit Provider Advanced Practice Midwife
DX: N76.0 Acute vaginitis (principal); L73.2 Hidradenitis suppurativa; F17.200 Nicotine dependence, unspecified, uncomplicated; Z30.09 Encounter for other general counseling and advice on contraception; F41.8 Other specified anxiety disorders
CPT/HCPCS: 99213

== ENCOUNTER 2025-07-23 10:02 | Outpatient (REF) | payer OTHER, SELFPAY ==
[2025-07-23 22:51] LABS: Bacterial Vaginosis PCR POSITIVE (Negative); Candida Group PCR DETECTED (Not Detect); Candida glab krusei PCR NOT DETECTED (Not Detect); Trichomonas vaginalis PCR NOT DETECTED (Not Detect)
[2025-07-23 23:23] LABS: CT PCR NOT DETECTED (Not Detect.); NG PCR NOT DETECTED (Not Detect.)
== END 2025-07-23 10:03 | disposition home or self-care (01) ==
LOC: HO.LNP 10:02
PROVIDERS: Visit Provider Advanced Practice Midwife
DX: N76.0 Acute vaginitis (principal); L73.2 Hidradenitis suppurativa; Z30.09 Encounter for other general counseling and advice on contraception; Z20.2 Contact with and (suspected) exposure to infections with a predominantly sexual mode of transmission; F41.8 Other specified anxiety disorders; F17.210 Nicotine dependence, cigarettes, uncomplicated
CPT/HCPCS: 81515; 87491; 87591; 99212